=== PATIENT | male | born 1955 | race Caucasian/White ===

== ENCOUNTER 2022-08-23 11:22 | Emergency (ER) | payer OTHER, SELFPAY ==
[2022-08-23 11:24] VITALS: BP 171/88; PULSE 57; RESP 16; TEMP 35.7; O2SAT 99; BMI 34.4
--- NOTE | 2022-08-23 12:13 | ED.VIS.BACK ---
HPI <KENNETH Ng - Last Filed: 08/23/22 22:18> History of Present Illness Chief Complaint: Back Narrative Narrative: Patient presents to the ER with lower right-sided back pain that started Monday evening. He states this feels muscular in nature and he thinks this has happened in the past but is unsure. The pain is worsened by walking/movement and improved with rest. He has tried extra strength Tylenol and aspirin without relief. Patient denies leg weakness, bowel or bladder incontinence, saddle paresthesia, history of back injury, dysuria, hematuria, and urinary frequency. PFSH <KENNETH Ng - Last Filed: 08/23/22 22:18> [facility] Medical History Diabetes Gout HTN (hypertension) Home Medications cyclobenzaprine 10 mg tablet 10 mg PO BID PRN muscle spasm #10 tabs 08/23/22 [Rx Last Taken Unknown] naproxen 500 mg tablet (Naprosyn) 500 mg PO BID PRN pain #20 tabs 08/23/22 [Rx Last Taken Unknown] Allergy/AdvReac Type Severity Reaction Status Date / Time No Known Allergies Allergy Verified 08/23/22 11:22 Social History Smoking Status: Never smoker ROS <KENNETH Ng - Last Filed: 08/23/22 22:18> ROS ED Constitutional Constitutional ED: Denies chills, fever(s) or sweats Eyes Eyes: Denies blurry vision, change in vision or diplopia ENT ENT ED: Denies nasal congestion, rhinorrhea or sore throat Cardiovascular Cardiovascular: Denies chest pain, palpitations or racing heartbeat Respiratory/Chest Respiratory/Chest: Denies dyspnea, dyspnea on exertion, shortness of breath at rest or shortness of breath with exertion Gastrointestinal Gastrointestinal: Denies abdominal pain, diarrhea, nausea or vomiting Genitourinary Genitourinary ED: Denies dysuria, hematuria or urinary frequency Musculoskeletal Musculoskeletal: Reports back pain; Denies arthralgias or neck pain Integumentary Denies abscess, Abrasions or rash Neurologic Neurologic: Denies headache(s), paresthesias or weakness Psychiatric Psychiatric: Denies anxiety or depression EXAM <KENNETH Ng - Last Filed: 08/23/22 22:18> Physical Exam Const Vital Signs: 08/23/22 11:24 Temperature 96.3 F L Temperature Source Temporal Pulse Rate 57 L Respiratory Rate 16 Blood Pressure 171/88 H Blood Pressure Mean 115 Pulse Ox 99 Oxygen Delivery Method Room Air Positive obese General Appearance ED: NAD Nutritional Appearance: obese HEENT Reports moist mucous membranes Negative for trauma or tenderness Eyes PERRL and EOMs intact bilaterally Neck no lymphadenopathy and supple Resp normal respiratory effort and clear to auscultation bilaterally Cardio regular rate, regular rhythm and no murmurs GI soft to palpation, non-tender, non-distended and no masses Back/Spine Back/Spine Narrative: Patient has tenderness to palpation in the right flank area. Cervical Spine: cervical ROM normal and Negative for cervical spine tenderness Thoracic Spine / Upper Back: normal to inspection and thoracic ROM normal Lumbar Spine / Lower Back: normal to inspection, lumbar ROM normal and straight leg raise negative bilaterally Sacroiliac Joints: SI joints normal Sacrum: Negative for ecchymosis, swelling or tenderness Extremity normal to inspection General Extremety ED: Negative for edema or tenderness General Extremity: Negative for edema Neuro oriented x3 and no sensory deficits noted Neuro Narrative: Pulses 2+ throughout. Sensorium / Orientation: alert Gait (Neuro): normal gait Motor Exam: strength 5/5 throughout Psych mental status grossly normal Skin no rashes or lesions noted and no wounds <Michael Kraus MD - Last Filed: 08/23/22 14:56> Physical Exam Const Vital Signs: 08/23/22 11:24 Temperature 96.3 F L Temperature Source Temporal Pulse Rate 57 L Respiratory Rate 16 Blood Pressure 171/88 H Blood Pressure Mean 115 Pulse Ox 99 Oxygen Delivery Method Room Air MDM <KENNETH Ng - Last Filed: 08/23/22 22:18> [facility] Narrative Medical decision making narrative: Lumbar spine x-ray shows degenerative changes of the spine. Right 1 anterolisthesis of L4 on L5 most likely secondary to facet joint osteoarthritis. These findings have been discussed with patient. He has been told to follow-up with his PCP for further treatment. He has been sent home with naproxen and a muscle relaxer. Patient has been given return instructions. He has been educated to avoid heavy lifting or exertional activities and use ice on the area for 10 to 15 minutes 3-4 times a day for the next few days. I am comfortable with patient discharging home and patient is comfortable with plan. Lab Data Attestation: I reviewed the patient's lab results. Lab results narrative: No hematuria, no acute cystitis. Labs: Laboratory Results - last 24 hr 08/23/22 12:51 Urine Color Yellow Urine Clarity Clear Urine pH 6.0 Ur Specific [place] 1.015 Urine Protein 30 H Urine Glucose (UA) Normal Urine Ketones Negative Urine Occult Blood Negative Urine Nitrite Negative Urine Bilirubin Negative Urine Urobilinogen Normal Ur Leukocyte Esterase 25 H Urine RBC 0 SEEN Urine WBC 0-5 SEEN Ur Squamous Epith Cells 0 SEEN Urine Bacteria 0 SEEN Hyaline Casts 0-5 SEEN Fine Granular Casts 0-5 SEEN Urine Mucus 1+ Radiography Diagnostic Testing: Clinical Impression(s) from Imaging Studies Lumbar Spine X-Ray 08/23/22 12:53 IMPRESSION: Degenerative changes of the spine, as detailed above. Right 1 anterolisthesis of L4 on L5 most likely secondary to facet joint osteoarthritis. Electronically Signed: Marky Morales MD at 13:27 EST Reading Location ID and State: [facility] , Service support , I have reviewed lumbar spine x-ray and I agree with radiologist impressions. This has also been reviewed by attending ED physician. <Michael Kraus MD - Last Filed: 08/23/22 14:56> [facility] Narrative Medical decision making narrative: X-rays interpreted by ED physician of the lumbar spine x-ray shows degenerative changes of the spine. Right 1 anterolisthesis of L4 on L5 most likely secondary to facet joint osteoarthritis. These findings have been discussed with patient. He has been told to follow-up with his PCP for further treatment. He has been sent home with naproxen and a muscle relaxer. Patient has been given return instructions. He has been educated to avoid heavy lifting or exertional activities and use ice on the area for 10 to 15 minutes 3-4 times a day for the next few days. I am comfortable with patient discharging home and patient is comfortable with plan. I have personally performed a face to face assessment of the patient and have reviewed the KAYLA Note. I performed a substantive portion of the visit including all aspects of the following. My ibrahim findings include: History is right paraspinal/flank pain times days. No known injury. Exam is afebrile. Vital signs noted. Mild tenderness to palpation right flank/paraspinal musculature. No vertebral point tenderness or bony step-off. No crepitance. Medical Decision Making check UA. Check back x-rays. X-rays interpreted by myself show degenerative changes. Analgesia/muscle relaxers. Follow-up primary care. Discharge. Other additions or changes: [None] Lab Data Labs: Laboratory Results - last 24 hr 08/23/22 12:51 Urine Color Yellow Urine Clarity Clear Urine pH 6.0 Ur Specific [place] 1.015 Urine Protein 30 H Urine Glucose (UA) Normal Urine Ketones Negative Urine Occult Blood Negative Urine Nitrite Negative Urine Bilirubin Negative Urine Urobilinogen Normal Ur Leukocyte Esterase 25 H Urine RBC 0 SEEN Urine WBC 0-5 SEEN Ur Squamous Epith Cells 0 SEEN Urine Bacteria 0 SEEN Hyaline Casts 0-5 SEEN Fine Granular Casts 0-5 SEEN Urine Mucus 1+ Radiography Diagnostic Testing: Clinical Impression(s) from Imaging Studies Lumbar Spine X-Ray 08/23/22 12:53 IMPRESSION: Degenerative changes of the spine, as detailed above. Right 1 anterolisthesis of L4 on L5 most likely secondary to facet joint osteoarthritis. Electronically Signed: Marky Morales MD at 13:27 EST Reading Location ID and State: [address] [place] [address] , Service support , Discharge Plan Triage Chief Complaint: Back ED Midlevel Provider: Linnea Pugh ED Provider: Michael Kraus Dx/Rx/DC Orders Clinical Impression: Back pain, Anterolisthesis of lumbar spine Instructions: ED Back Pain (Acute or Chronic) Prescriptions: New naproxen [Naprosyn] 500 mg tablet 500 mg PO BID PRN (Reason: pain) Qty: 20 0RF cyclobenzaprine 10 mg tablet 10 mg PO BID PRN (Reason: muscle spasm) Qty: 10 0RF [facility] - 5-7 Days Activity Restrictions/Additional Instructions: You can use ice for 10 to 15 minutes 3-4 times a day for the next few days. Please follow-up with PCP for additional treatment options. Disposition Disposition: Home, Self Care Discharge Date/Time: 08/23/22 13:59
--- NOTE | 2022-08-23 12:53 | RAD_ITS ---
STUDY: X-RAY - LUMBAR SPINE REASON FOR EXAM: Male, 67 years old. Right hip pain and lower back pain. TECHNIQUE: 3 view(s) of the lumbar spine were obtained. COMPARISON: None FINDINGS: Normal lumbar lordosis. There is a mild dextroscoliosis of the lumbar spine. Grade 1 anterolisthesis of L4 on L5 most likely secondary to facet joint osteoarthritis. Normal vertebral bodies and endplates. There is multi-level degenerative disc disease with multi-level disc space narrowing. Facet joint osteoarthritis. There is atherosclerotic calcification of the abdominal aorta without a demonstrated aneurysm. RAD/L/S Spine Min 4 Views IMPRESSION: Degenerative changes of the spine, as detailed above. Right 1 anterolisthesis of L4 on L5 most likely secondary to facet joint osteoarthritis. Electronically Signed: Marky Morales MD at 13:27 EST ,
[2022-08-23 12:55] LABS: Bacteria 0 SEEN /hpf (None Seen); Red Blood Cells-Urine 0 SEEN /hpf (0-5); Squamous Epithelial Cells - UA 0 SEEN /hpf (0-5)
[2022-08-23 13:19] LABS: Color, Urine Yellow (Yellow); Glucose, Dipstick Normal (Normal); Ketone-Dipstick Negative (Negative); Leukocyte Esterase-Dipstick 25 /ul (Negative); Nitrite-Dipstick Negative (Negative); Occult Blood-Urine Negative /ul (Negative); Protein-Dipstick 30 mg/dl (Negative); Specific Gravity, Urine 1.015 (1.002-1.030); Urine Bilirubin Dipstick Negative (Negative); Urine Clarity Clear (Clear); Urine Urobilinogen Normal (Normal)
[2022-08-23 13:43] LABS: Hyaline Cast 0-5 SEEN /lpf (0-5); White Blood Cells 0-5 SEEN /hpf (0-5)
[2022-08-23 13:44] LABS: Fine Granular Cast- Urine 0-5 SEEN /lpf (0-5); Mucous, Urine 1+ /hpf (<or=2+)
== END 2022-08-23 13:59 | disposition home or self-care (01) ==
PROVIDERS: Physician Assistant; Emergency Provider Emergency Medicine; Visit Provider Emergency Medicine
DX: M43.16 Spondylolisthesis, lumbar region (principal); E11.9 Type 2 diabetes mellitus without complications; M54.9 Dorsalgia, unspecified; I10 Essential (primary) hypertension
CPT/HCPCS: 72110; 81001; 99282

== ENCOUNTER 2022-12-09 23:10 | Observation (INO) | payer OTHER, SELFPAY ==
[2022-12-09 23:10] VITALS: BP 154/92; PULSE 58; RESP 18; TEMP 36.2; O2SAT 100; BMI 32.8
--- NOTE | 2022-12-09 23:33 | EDS_ITS ---
HPI History of Present Illness HPI Narrative: Patient presents with pain in his left hip that has been getting worse over the past week. Patient states it became severe yesterday. Patient states his pain is worse with any weightbearing or ambulation. Patient states it is better in certain positions. Patient denies any paresthesias or weakness. Patient denies any trauma or injury. Patient describes his pain as sharp. Patient states he has had 2 x-rays of his hip and low back recently. Patient states he was diagnosed with degenerative disc disease in his low back and degenerative arthritis of his hips. Patient states there was no fracture with either of the x-rays. Patient states he was seen at [facility] recently and was started on prednisone, Neurontin, Flexeril, and lidocaine patches. Patient states he has been taking these with no improvement. Chief Complaint: Lower Extremity Injury Informant: patient Onset/Context/Timing Onset: Weeks (1) Context: Gradual Onset Timing: Continuous Quality of Pain: Sharp Location: Left hip Worsened by: Ambulation Relieved by: Certain positions Associated Symptoms Associated Symptoms: Negative for Parasthesia, Weakness or Loss of Funtion PFSH [facility] Medical History DDD (degenerative disc disease) Diabetes Gout HTN (hypertension) Home Medications cyclobenzaprine 10 mg tablet 10 mg PO BID PRN muscle spasm #10 tabs 08/23/22 [Rx Last Taken Unknown] naproxen 500 mg tablet (Naprosyn) 500 mg PO BID PRN pain #20 tabs 08/23/22 [Rx Last Taken Unknown] Allergy/AdvReac Type Severity Reaction Status Date / Time No Known Allergies Allergy Verified 12/09/22 23:14 Surgical History no surgical history no surgical history Social History Smoking Status: Never smoker ROS ROS ED Constitutional Constitutional ED: Denies chills or fever(s) Eyes Eyes: Denies blurry vision or change in vision ENT ENT ED: Denies rhinorrhea or sore throat Cardiovascular Cardiovascular: Denies chest pain or palpitations Respiratory/Chest Respiratory/Chest: Denies cough or dyspnea Gastrointestinal Gastrointestinal: Denies nausea or vomiting Genitourinary Genitourinary ED: Denies dysuria or hematuria Musculoskeletal Musculoskeletal: Denies back pain or neck pain Integumentary Denies abscess or rash Neurologic Neurologic: Denies headache(s) or weakness Allergic/Immunologic Allergic/Immunologic ED: Denies mouth swelling or urticaria EXAM Physical Exam Const Vital Signs: 12/09/22 23:10 12/10/22 03:16 Temperature 97.1 F L Temperature Source Temporal Pulse Rate 58 L 47 L Respiratory Rate 18 16 Blood Pressure 154/92 H 150/78 H Blood Pressure Mean 112 102 Pulse Ox 100 96 Oxygen Delivery Method Room Air Room Air Positive well nourished, well developed and obese General Appearance ED: well developed and NAD Nutritional Appearance: obese HEENT Reports moist mucous membranes Neck full ROM Extremity Extremity Narrative: There is tenderness over the left hip. There is no deformity noted. Range of motion was slightly limited in all motions of the left hip secondary to pain. Pedal pulses are equal bilaterally. Sensation was intact to light touch bilaterally in the lower extremities. Neuro oriented x3, CN's II-XII intact bilaterally, moves all extremities and no sensory deficits noted Sensorium / Orientation: alert Motor Exam: strength 5/5 throughout Psych mental status grossly normal MDM MDM MDM Narrative Medical decision making narrative: Differential diagnosis includes muscular strain, degenerative arthritis, muscle spasm, and neuropathic pain. I do not feel x-rays are necessary at this time since he has had 2 recent x-rays which did not show any acute fractures. Radiography Diagnostic Testing: Clinical Impression(s) from Imaging Studies Lower Extremity CT 12/10/22 03:06 IMPRESSION: No CT evidence of fracture, dislocation, or significant soft tissue abnormality. Electronically Signed: Florida Walters MD at 4:16 EDT Reading Location ID and State: [address] [place] [address] , Service support , CT scan of the left hip was obtained. There is no evidence of occult fracture or dislocation. This was interpreted by the radiologist and was also independently reviewed by myself. Management Discussion w/another healthcare provider: Hospitalist Treatment and Re-Evaluation Narrative: Patient was given injection of morphine. Patient had no improvement with this. Patient was given a repeat dose of morphine. Patient was still unable to bear weight or ambulate. Because of this, CT scan of the left hip was obtained. There is no evidence of occult fracture. This was interpreted by the radiologist and was also independently reviewed by myself. Patient was given a dose of Dilaudid. Patient was still unable to ambulate. Case was discussed with the hospitalist. She will admit the patient for intractable pain. Patient understood and was agreeable with the plan. All questions were answered. Discharge Plan Triage Chief Complaint: Lower Extremity Injury ED Provider: Monico Isaac Dx/Rx/DC Orders Clinical Impression: Intractable pain, Degenerative arthritis of hip Prescriptions: No Action naproxen [Naprosyn] 500 mg tablet 500 mg PO BID PRN (Reason: pain) Qty: 20 0RF cyclobenzaprine 10 mg tablet 10 mg PO BID PRN (Reason: muscle spasm) Qty: 10 0RF [facility] - Disposition Disposition: Acute Care Hospital [facility]
[2022-12-10] VITALS (11 sets, daily range): BP systolic 124–197; BP diastolic 74–108; PULSE 47–70; RESP 16–24; TEMP 36.1–36.9; O2SAT 95–98; BMI 32.5
[2022-12-10] MEDS: Morphine 4 MG/ML Syringe IM ×2 (00:02→01:31)
--- NOTE | 2022-12-10 03:06 | CT_ITS ---
CT LEFT LOWER EXTREMITY WITH 3-D IMAGING CLINICAL INDICATION: Patient has left-sided hip pain. COMPARISON: TECHNIQUE: Axial CT images of the LEFT lower extremity was performed without IV contrast material. Coronal and sagittal reformats were provided. 547 mGy-cm. FINDINGS: Bones: Osseous structures are normal without evidence of fracture or dislocation. No lytic or blastic osseous masses. Soft Tissues: The deep soft tissue structures are unremarkable. The superficial soft tissues are unremarkable without evidence of edema, hematoma, or foreign body. CT/Extremity Lower without Contra IMPRESSION: No CT evidence of fracture, dislocation, or significant soft tissue abnormality. Electronically Signed: Florida Walters MD at 4:16 EDT ,
[2022-12-10] MEDS: HYDROmorphone 0.5 MG/0.5 ML SYRINGE IM (03:18)
--- NOTE | 2022-12-10 05:17 | HP.PCM_ITS ---
HPI - General General Date of Admission: 12/10/22 Date of Service: 12/10/22 Chief Complaint: Intractable L hip, lumbar back pain. HPI Narrative The patient is a 67 y/o M w/ PMHx: Obesity, Gout, HTN, Diabetes mellitus type II, OA who presents to the [facility] ED on 12/10/22 with history of onset intractable left hip pain starting on [facility] and some kind of injection possibly steroids with transient improvement with ability over the next 24-48 hrs. ability to ambulate and be active but he acutely worsened on Monday with tentative 10 severe pain with any ambulation or activity attempt with pain 10 out of 10 at that point however if he laid flat on the left side pain 1 out of 10 with no specific shooting pain down the extremity or paresthesias however given ongoing prompted ED evaluation. He does report that he has had a similar presentation prior although this is more severe and at that time it was in the right hip 3 months ago and resolved with conservative interventions. In the ED following several pain medications he was able with much difficulty to stand and use the urinal with assistance but this was still painful and very difficult. Work-up in the ED included T97.1, heart rate 65, BP 189/98, respiratory rate 18, 98% on room air, CT of the left hip with no evidence of fracture, dislocation, or significant soft tissue abnormality. In the ED patient administered morphine 4 mg IM x2 and Dilaudid 0.5 mg IM x1. [facility] Medical History (Updated 12/10/22 @ 06:[address] Keeley Gutiérrez MD) DDD (degenerative disc disease) Diabetes Gout HTN (hypertension) Obesity (BMI 30.0-34.9) Home Medications cyclobenzaprine 10 mg tablet 10 mg PO BID PRN muscle spasm #10 tabs 08/23/22 [Rx Last Taken Unknown] naproxen 500 mg tablet (Naprosyn) 500 mg PO BID PRN pain #20 tabs 08/23/22 [Rx Last Taken Unknown] Allergy/AdvReac Type Severity Reaction Status Date / Time No Known Allergies Allergy Verified 12/09/22 23:14 Family History (Updated 12/10/22 @ 06:[address] Keeley Gutiérrez MD) Mother Rheumatoid arthritis Father Diabetes Surgical History (Updated 12/10/22 @ 06:[address] Keeley Gutiérrez MD) History of tonsillectomy and adenoidectomy Surgical History no surgical history Social History (Updated 12/10/22 @ 06:[address] Keeley Gutiérrez MD) household members: none Smoking Status: Never smoker alcohol intake: current alcohol intake frequency: holidays/special occasions only substance use type: does not use ROS ROS Narrative Admission Review of Systems: CONSTITUTIONAL: No weight loss, fever, chills, + weakness or fatigue. HEENT: Eyes: No visual loss, blurred vision, double vision or yellow sclerae. Ears, Nose, Throat: No hearing loss, sneezing, congestion, runny nose or sore throat. SKIN: No rash or itching, lesions, wounds. CARDIOVASCULAR: No chest pain, chest pressure or chest discomfort, palpitations, edema, orthopnea, syncopal events. RESPIRATORY: No shortness of breath, cough or sputum, wheezing, hemoptysis. GASTROINTESTINAL: No anorexia, nausea, vomiting or diarrhea, abdominal pain, melena, BRBPR. GENITOURINARY: No dysuria, frequency, urgency or retention. NEUROLOGICAL: No headache, dizziness, syncope, paralysis, ataxia, numbness or tingling in the extremities, focal weakness, change in bowel or bladder control, seizure. MUSCULOSKELETAL: + muscle, back pain, joint pain or stiffness. HEMATOLOGIC: No anemia, bleeding or bruising. LYMPHATICS: No enlarged nodes. No history of splenectomy. PSYCHIATRIC: No history of depression or anxiety. ENDOCRINOLOGIC: No reports of sweating, cold or heat intolerance. No polyuria or polydipsia. ALLERGIES: No history of asthma, hives, eczema or rhinitis. Vital Signs Vital Signs Vital Signs: 12/09/22 23:10 12/10/22 03:16 Temperature 97.1 F L Temperature Source Temporal Pulse Rate 58 L 47 L Respiratory Rate 18 16 Blood Pressure 154/92 H 150/78 H Blood Pressure Mean 112 102 Pulse Ox 100 96 Oxygen Delivery Method Room Air Room Air Weight Weight: 222 lb 3.615 oz Body Mass Index (BMI) 32.8 Physical Exam Narrative Physical Examination: General: Awake, alert, oriented x 3 and cooperative, laying in the ED bed on his left side, currently rates pain 1 out of 10 but notes that if he moves in the bed or attempts to stand it is more severe. Skin: Normal color, normal turgor, no icterus, no cyanosis. HEENT: AT/NC, EOMI, PERRLA, MMM, no carotid bruits or JVD noted. Lungs: CTA bilaterally, moderate effort, mild decrease BL bases, no rales, ronchi or wheezing. Heart: Regular rate and rhythm; no gallop, rub audible. Abdomen: Soft, obese, NTTP, ND, mildly hyperactive BS, no HSM. Extremities: No cyanosis, clubbing, or edema, peripheral pulses intact, pain with rotation or movement of the right hip. Neurological: Patient awake, alert, oriented as noted, cognitive function intact; pupils equally reactive to light and accommodation, cranial nerves II- XII grossly normal, moving all 4 extremities except significantly limited left hip given pain elicited, strength accordingly severely globally decreased. Psychiatric: Affect appears normal, more uncomfortable with attempted activity in the bed, no acute evidence of depressive or anxiety feelings. Results Radiology Impression Lower Extremity CT 12/10/22 03:06 IMPRESSION: No CT evidence of fracture, dislocation, or significant soft tissue abnormality. Electronically Signed: Florida Walters MD at 4:16 EDT Reading Location ID and State: [address] [place] [address] , Service support , Assessment & Plan Assessment/Plan (1) Intractable pain: PLAN: Plan The patient is a 67 y/o M w/ PMHx: Obesity, Gout, HTN, Diabetes mellitus type II, OA who presents to the [facility] ED on 12/10/22 with history of onset intractable left hip pain starting on Monday [facility] and some kind of injection possibly steroids with transient improvement with ability over the next 24-48 hrs. ability to ambulate and be active but he acutely worsened on Monday with tentative 10 severe pain with any ambulation or activity attempt with pain 10 out of 10 at that point however if he laid flat on the left side pain 1 out of 10. #1. Acute Intractable L hip Pain: CT of the left hip with no acute findings and [facility] the [facility] also with no acute findings, unclear specific etiology. Will admit to [facility], maintain on fall precautions, frequent positioning, initiate IV toradol, lidoacine patches, tizanidine, medrol dose pack, po/IV narcotic pain regimen, anti-emetics, bowel regimen. Will consult PT and OT for evaluation as well as Case management for discharge planning. Given severity of pain and intractable nature to be cautious we will also obtain CRP and ESR and request evaluation by orthopedic surgery. #2. Diabetes mellitus type II: From current list not on regimen but clarifying with the [facility], in the interim we will maintain on ADA diet, accu checks w/ ISS. #3. Hypertension: Per current list not on regimen, clarifying with the [facility], in the interim as needed IV hydralazine. #4. Obesity: Weight loss and lifestyle changes encouraged. #5. Gout: From current list not on chronic regimen, clarifying with the [facility]. #6. DVT prophylaxis: Lovenox. #7. CODE STATUS: Full Code. Admission Evaluation Time spent evaluating chart, patient history, patient evaluation, care planning and discussion with specialists: 55 minutes. Charges/Coding Visit Charges Inpatient E&M: 79869 Init Hosp L2
--- NOTE | 2022-12-10 05:46 | NURSING ---
CALLED [facility] FOR AUTHORIZATION NUMBER - REFERRAL ID # [id number] [place] AUTHORIZATION #[id number]
[2022-12-10 06:55] LABS: Erythrocyte Sedimentation Rate 10 mm/hr (0-20)
[2022-12-10] MEDS: HYDROmorphone 0.5 MG/0.5 ML SYRINGE IV ×2 (07:06→10:42)
[2022-12-10 07:14] LABS: CRP 3.61 mg/L (0.0-3.0)
[2022-12-10] MEDS: 0.9% Normal Saline 1,000 ML 100 ML IV (07:30)
[2022-12-10] MEDS: 0.9% Saline Lock 10 ML Syringe IV ×2 (07:30→08:24)
--- NOTE | 2022-12-10 08:22 | EKG12_ITS ---
Test Reason : Blood Pressure : / mmHG Vent. Rate : 056 BPM Atrial Rate : 056 BPM P-R Int : 170 ms QRS Dur : 104 ms QT Int : 464 ms P-R-T Axes : 013 003 050 degrees QTc Int : 447 ms Sinus bradycardia with occasional Premature ventricular complexes Otherwise normal ECG When compared with ECG of 10-DEC-2022 08:35, MANUAL COMPARISON REQUIRED, DATA IS UNCONFIRMED Confirmed by KINGSLEY BERGERON, JOAQUÍN ([id number]), avid editor JAMIE DILL ([id number]) on 12/13/2022 9:07:20 AM Referred By: JUSTINO Confirmed By:JOAQUÍN WYNN MD
--- NOTE | 2022-12-10 08:23 | NURSING ---
Dr Carver here to assess pt, said to transfer and also to give hydralzine.
[2022-12-10] MEDS: hydrALAZINE 20 MG/ML Vial 10 MG IV (08:24)
--- NOTE | 2022-12-10 08:35 | EKG12_ITS ---
Test Reason : DIAPHORESIS Blood Pressure : / mmHG Vent. Rate : 062 BPM Atrial Rate : 062 BPM P-R Int : 178 ms QRS Dur : 094 ms QT Int : 446 ms P-R-T Axes : 091 -47 051 degrees QTc Int : 452 ms Sinus rhythm with occasional Premature ventricular complexes Left axis deviation Septal infarct , age undetermined Abnormal ECG No previous ECGs available Confirmed by KINGSLEY BERGERON, JOAQUÍN ([id number]), editor trade journal JAMIE DILL ([id number]) on 12/13/2022 9:13:02 AM Referred By: TACHO Confirmed By:JOAQUÍN WYNN MD
--- NOTE | 2022-12-10 09:04 | ECHOCS_ITS ---
Reason For Study: BRADYCARDIA Procedure This was a 2D Doppler, Color Flow transthoracic echocardiogram. The study was technically difficult. Contrast injection was performed. Exam performed portable in patient room. Left Ventricle Mildly dilated left ventricle. The estimated ejection fraction is 45-50 %. LimitedTTE with TDS Contrast echo used Overall EF 45-50%. Right Ventricle Normal right ventricle. Normal systolic function. Atria The left atrium is mildly enlarged. Normal right atrium. Mitral Valve The mitral valve is structurally normal. No prolapse or stenosis seen. No mitral valve insufficiency. Tricuspid Valve Normal tricuspid valve. No tricuspid valve insufficiency. Aortic Valve Normal aortic valve. Pulmonic Valve The pulmonic valve is not well visualized. Great Vessels Normal aortic root. Pericardium/Pleural No pericardial effusion. Medication Diluted definity 3ml given slow IV push to enhance endocardial definition. MMode/2D Measurements & Calculations Ao root diam: 3.3 cm SV(MOD-sp4): 72.2 ml LVAd ap4: 43.3 cm2 LVLd ap4: 9.9 cm EDV(MOD-sp4): 156.7 ml EDV(sp4-el): 161.6 ml LVAs ap4: 30.4 cm2 LVLs ap4: 8.8 cm ESV(MOD-sp4): 84.5 ml ESV(sp4-el): 88.9 ml EF(MOD-sp4): 46.1 % EF(sp4-el): 45.0 % SV(sp4-el): 72.7 ml LA dimension(2D): 4.8 cm Time Measurements MV dec time: 0.28 sec Doppler Measurements & Calculations MV E max monty: 64.1 cm/sec Lat Peak E' Monty: 6.8 cm/sec Med Peak E' Monty: 6.4 cm/sec MV A max monty: 63.0 cm/sec E/E' lat: 9.4 E/E' med: 10.0 MV E/A: 1.0 MV V2 max: 74.4 cm/sec Ao V2 max: 82.0 cm/sec MV max P.2 mmHg MV dec slope: 232.4 cm/sec2 Ao max P.7 mmHg MV V2 mean: 43.3 cm/sec Ao V2 mean: 54.7 cm/sec MV mean P.86 mmHg Ao mean P.4 mmHg MV V2 VTI: 22.3 cm Ao V2 VTI: 20.4 cm AV (velocity ratio): 0.84 LV V1 max: 72.4 cm/sec PA V2 max: 74.9 cm/sec TR max monty: 297.5 cm/sec LV V1 max P.1 mmHg PA V2 mean: 61.8 cm/sec TR max P.4 mmHg LV V1 mean P.1 mmHg LV V1 mean: 50.4 cm/sec LV V1 VTI: 17.2 cm ECHO/Echo Complete W/ Contrast Interpretation Summary The estimated ejection fraction is 45-50 %. LimitedTTE with TDS Contrast echo used No prior echo to compare Ordering Physician: Gabbi Duarte Referring Physician: [facility] Performed By: Lou Elkins RCS
[2022-12-10 09:16] LABS: Bedside Glucose 144 mg/dL (74-106)
[2022-12-10] MEDS: Gabapentin 100 MG Capsule PO ×3 (09:29→16:45)
[2022-12-10] MEDS: oxyCODONE 5 MG Tablet PO ×3 (09:29→18:30)
[2022-12-10] MEDS: Acetaminophen 325 MG Tablet 650 MG PO ×3 (09:29→18:30)
--- NOTE | 2022-12-10 09:31 | NURSING ---
0838 report to Lydia Mary RN
--- NOTE | 2022-12-10 09:32 | NURSING ---
0852 Lydia Mary Rn notified pt is in 107.
[2022-12-10 09:48] LABS: Troponin-I HS 17 pg/mL (3.0-78.0)
[2022-12-10] MEDS: tiZANidine HCl 2 MG Tablet 4 MG PO (10:41)
[2022-12-10] MEDS: MethylPREDNISolone DosePak 4 MG BOX PO ×4 (10:41→21:20)
[2022-12-10] MEDS: Lidocaine 5% Patch 1 PATCH TOPICAL (10:42)
[2022-12-10] MEDS: Enoxaparin 40 MG/0.4 ML Syringe SC (10:42)
[2022-12-10] MEDS: Insulin Lispro 100 UNIT/ML INSULN.PEN SC ×3 (11:08→21:25)
[2022-12-10 11:40] LABS: Bedside Glucose 184 mg/dL (74-106)
[2022-12-10] MEDS: Lisinopril 10 MG Tablet PO (11:59)
[2022-12-10] MEDS: metFORMIN HCl 1,000 MG Tablet 1000 MG PO (12:55)
[2022-12-10] MEDS: hydroCHLOROthiazide 12.5mg 12.5 MG PO (12:55)
--- NOTE | 2022-12-10 13:55 | CASEMGMT ---
SHAI BOWIE DC Planning Assessment: Face to Face with patient for initial transition planning/care coordination assessment.?SHAI BOWIE introduced self and role at [facility], pt voices understanding and is agreeable to participating in assessment. Care providers, pharmacy,?and demographics verified. ? Admitting dx: intractable left hip pain PCP: Raúl Specialists: Darnell (rheumatology) [facility]? Living Will/HPOA: none LNOK: brother Salas Living Arrangements: Pt lives alone in a two story home. Pt's bedroom and 1/2 bath on first floor and tub is on the second floor. Pt does not have a shower. Pt states he does not cook and eats out for all of his meals. 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 Transportation: pt drives DME: none HHC/SNF: none ? Plan: Pt plans to return home at discharge with outpt therapy. Pt states he was to have outpt tx after his last flare up but states he did not attend. Pt has followed up with his PCP and an outpt tx appointment has been scheduled for him on December 26 at the [facility]. Pt states he plans to attend this appointment. Pt has not been seen by PT/OT as of this date and time. Pt remains painful but states it is decreasing. Will continue to follow for additional DC needs as they are identified. Suzette Dunne RN CM
--- NOTE | 2022-12-10 14:27 | PCM.CONS.B ---
Consult Date of Consult: 12/10/22 Mr. Perez is a most pleasant gentleman 67 years old and has a chief complaint of pain in his left buttocks. First began about a month ago with pain in the right buttocks did go down his right thigh or leg. Got better with some treatments by his family doctor Monday it began in the left side with even more pain than it had been on the right a month earlier. Pain became unbearable yesterday admitted through the emergency department treatment. Currently a CT scan was done of the left hip which was unremarkable. That the pain he thinks might go a little bit into his left thigh but it certainly does not go below the knee. He denies any bowel or bladder dysfunction. He denies history of explained weight loss night fever sweats or chills. He denies any specific injury that could have started this. On examination it is noted that he has excellent motor strength of all the major muscle groups of both lower extremities. He has no specific muscle atrophy. He has no pain with internal or external rotation or abduction of the left hip. Reflexes were physiologic and equal bilaterally. He has no long tract signs. Clonus is absent Babinski's are downgoing. Review of plain x-rays taken of his back I demonstrate that he has a degenerative spondylolisthesis of L4 and L5. I suspect he has some degree of stenosis at this level. Recommendations: MRI scan is in order. I will order the MRI scan today however I do not know if it will be done until Monday. I be home by then and if so can be done as an outpatient. This is the end of consultation on Mr. Jarrod Perez. This is Dr. Guzmán dictating.
--- NOTE | 2022-12-10 15:10 | PN_ITS ---
Subjective Subjective Patient seen and examined. He was admitted with a complaint of intractable left hip pain. He still complained of left hip pain. This morning patient was noted to be bradycardic with heart rate going down to the 40s. He denied any chest pain but admitted to increased sweating. He denied any lightheadedness, nausea or vomiting. Review of systems otherwise negative. He does not have any known cardiac history. Objective Data Objective Data Vital Signs: Vital Signs Temp Pulse Resp BP Pulse Ox O2 Del Method 97.0 F L 61 18 124/74 H 97 Room Air 12/10/22 10:35 12/10/22 10:35 12/10/22 10:35 12/10/22 12:01 12/10/22 10:35 12/10/22 14:19 Oxygen Delivery Method Room Air Weight: 227 lb 1.218 oz Body Mass Index (BMI) 32.5 Intake & Output: Intake and Output for Last 24 Hours 12/08/22 12/09/22 12/10/22 23:59 23:59 23:59 Intake Total 240 / 240 Output Total 200 / 200 Balance 40 / 40 Lab / Micro Data Labs: Laboratory Results - last 24 hr 12/10/22 06:35: ESR 10 12/10/22 06:35: C-React Prot Ext Range 3.61 H 12/10/22 07:24: POC Glucose 144 H 12/10/22 08:42: Troponin I High Sens 17 12/10/22 10:58: POC Glucose 184 H Radiography Diagnostic Testing: Radiology Impression Lower Extremity CT 12/10/22 03:06 IMPRESSION: No CT evidence of fracture, dislocation, or significant soft tissue abnormality. Electronically Signed: Florida Walters MD at 4:16 EDT , Echocardiogram 12/10/22 09:04 Interpretation Summary The estimated ejection fraction is 45-50 %. LimitedTTE with TDS Contrast echo used No prior echo to compare Ordering Physician: Gabbi Duarte Referring Physician: [facility] Performed By: Lou Elkins RCS Physical Exam Const alert and oriented x3 Constitutional Narrative: mild distress due to pain HEENT normocephalic, head/scalp atraumatic and moist oral mucous membranes Eyes PERRL and EOMs intact bilaterally Neck supple and no JVD Lymph Lymphatic: no lymphadenopathy noted and no lymphedema noted Resp normal respiratory effort and normal air movement Cardio regular rate, regular rhythm, S1 normal heart sound, S2 normal heart sound and no murmurs Cardio Narrative: bradycardia from this morning had resolved GI normal to inspection, nondistended, normoactive bowel sounds, soft to palpation, non-tender and non-distended Extremity normal capillary refill, no clubbing, cyanosis or edema and no calf tenderness Skin General Skin Exam: no breakdown Neuro CN's II-XII intact bilaterally, no focal motor deficits and no sensory deficits noted Motor Exam: strength 5/5 throughout Psych affect normal Appearance: appropriate Assessment & Plan Assessment/Plan (1) Intractable pain: PLAN: Plan #Intractable left hip pain * etiology is unclear * LLE CT showed no evidence of fracture, dislocation or significant soft tissue * xray of the lumbar spine showed degenerative disease of the spine and right 1 anterolisthesis of L4 on L45 most likely due to facet joint osteoarthritis * will order lumbar spine MRI in light of persistent back pain to evaluate for spinal stenosis. * PT/OT consult. * fall precautions * PO tylenol, PO oxycodone and IV hydromorphone prn for pain * * #Bradycardia * patient noted to be bradycardic today with HR going down to the 40s. * Patient was also diaphoretic but asked whether this is from the severe pain or otherwise it is not clear. * EKG done showed sinus rhythm with heart rate around 61. * He was started on tizanidine yesterday which can cause bradycardia so this may be the cause. Will DC tizanidine. * 2D echo showed EF of 45 to 50% with structurally normal valves. Left atrium is mildly enlarged. * If bradycardia does not improve after tizanidine is discontinued, will benefit from cardiology consult. * Will monitor heart rate. * #Hypertension: On lisinopril as well as hydrochlorothiazide.IV hydralazine prn #History of gout: on allopurinol DVT prophylaxis; lovenox Charges/Coding Visit Charges Inpatient E&M: 69115 Subs Hosp L2
[2022-12-10] MEDS: Allopurinol 100 MG Tablet 200 MG PO (16:48)
[2022-12-10 16:51] LABS: Magnesium 1.8 mg/dL (1.6-2.6)
[2022-12-10 17:06] LABS: Bedside Glucose 227 mg/dL (74-106)
[2022-12-11 00:45] LABS: Bedside Glucose 212 mg/dL (74-106)
[2022-12-11 03:09] VITALS: BP 141/72; PULSE 50; RESP 17; TEMP 36.4; O2SAT 94
[2022-12-11 04:42] VITALS: BMI 32.5
[2022-12-11] MEDS: Insulin Lispro 100 UNIT/ML INSULN.PEN SC ×4 (06:17→21:39)
[2022-12-11 06:37] LABS: Absolute Lymphocyte Count 1.46 X10^3/uL (0.83-4.51); Absolute Neutrophil Count 13.4 X10^3/uL (2.0-7.7); Basophil# 0.02 X10^3/uL; Basophil% 0.1 % (0-1); Hematocrit 42.4 % (40-54); Hemoglobin 14.7 g/dL (13.0-16.5); Lymphocyte # 1.46 X10^3/ul (0.83-4.51); Lymphocyte % 9.2 % (19-41); Mean Corp Hgb Conc 34.7 g/dL (32-36); Mean Corpuscular Hgb 32.3 pg (27.0-32.0); Mean Corpuscular Volume 93.2 fL (80-94); Mean Platelet Vol. 9.7 fl (6.2-12.0); Monocyte# 0.78 X10^3/uL; Monocyte% 4.9 % (0-10); NRBC Flagged by Analyzer 0 % (0-5); Neutrophil # 13.39 X10^3/uL (2.7-7.7); Neutrophil % 84.9 % (47-70); Platelet Count 393 K/mm3 (150-450); RBC Distribution Width CV 13.2 % (11.6-14.6); RBC Distribution Width SD 45.2 fl (35.1-43.9); Red Blood Count 4.55 M/mm3 (4.6-6.2); White Blood Count 15.8 K/mm3 (4.4-11.0)
[2022-12-11 06:40] LABS: Bedside Glucose 205 mg/dL (74-106)
[2022-12-11 07:05] LABS: ALB/GLOB Ratio 0.9 RATIO (0.9-2.4); AST(SGOT) 23 U/L (15-37); Alanine Aminotransfer ALT/SGPT 47 U/L (16-61); Albumin, Serum 3.2 g/dL (3.2-5.0); Alkaline Phosphatase 64 U/L (45-117); Anion Gap 6 (5-15); BUN 29 mg/dL (7-18); BUN/Creat Ratio 26.9 RATIO (10-20); Calcium,Total 9.1 mg/dL (8.5-10.1); Chloride 102 mmol/L (98-107); Creatinine, Serum 1.08 mg/dL (0.70-1.30); EST Glomerular Filtration Rate 73 mL/min (>60); Est Glom Filt Rate - Afr Amer 88 mL/min (>60); Estimated Creatinine Clearance 70.41 ml/min; Globulin 3.6 g/dL (2.2-4.2); Glucose 208 mg/dL (74-106); Potassium 4.3 mmol/L (3.5-5.1); Protein, Total 6.8 g/dL (6.4-8.2); Sodium Level 134 mmol/L (136-145)
[2022-12-11] MEDS: Gabapentin 100 MG Capsule PO ×3 (07:57→16:26)
[2022-12-11] MEDS: MethylPREDNISolone DosePak 4 MG BOX PO ×4 (07:58→21:34)
[2022-12-11] MEDS: Allopurinol 100 MG Tablet 300 MG PO (07:58)
[2022-12-11] MEDS: oxyCODONE 5 MG Tablet PO ×3 (08:01→21:36)
[2022-12-11] MEDS: Acetaminophen 325 MG Tablet 650 MG PO ×3 (08:02→21:36)
[2022-12-11 08:47] VITALS: BP 161/94; PULSE 78; RESP 18; TEMP 36.7; O2SAT 98
[2022-12-11] MEDS: Lidocaine 5% Patch 1 PATCH TOPICAL (08:50)
[2022-12-11] MEDS: Lisinopril 10 MG Tablet PO (08:50)
[2022-12-11] MEDS: hydroCHLOROthiazide 12.5mg 12.5 MG PO (08:50)
[2022-12-11] MEDS: Enoxaparin 40 MG/0.4 ML Syringe SC (08:50)
--- NOTE | 2022-12-11 10:30 | MRI_ITS ---
STUDY: MR PELVIS WITHOUT CONTRAST REASON FOR EXAM: Male, 67 years old. Severe left hip pain. TECHNIQUE: Standardized fat and water weighted pulse sequences were obtained in all 3 orthogonal planes. COMPARISON: CT of the left hip, December 10, 2022. FINDINGS: Normal urinary bladder. Normal visualized small intestine. Normal visualized colon. Normal-appearing prostate. There is no pelvic fluid. There is no pelvic mass lesion or lymphadenopathy. Normal visualized pelvic arteries. Visualized lumbar spine, sacrum and sacroiliac joints and iliac wings appear normal. Normal bilateral superior and inferior pubic rami and ischial tuberosities. Minimal degenerative changes of the symphysis pubis. Normal right femoral head, neck and proximal shaft. Normal right acetabulum. Normal right hip joint. Normal left femoral head, neck and proximal shaft. Normal left acetabulum. Normal left hip joint. Normal abdominal wall. MRI/Pelvis (Routine) IMPRESSION: Normal unenhanced MRI of the pelvis. Electronically Signed: Brice Alatorre DO at 16:56 EDT ,
--- NOTE | 2022-12-11 10:30 | MRI_ITS ---
STUDY: MRI LUMBAR SPINE WITH AND WITHOUT CONTRAST REASON FOR EXAM: Male, 67 years old. severe left hip pain, BACK PAIN, UNABLE TO AMBULATE TECHNIQUE: Standardized fat and water weighted pulse sequences were obtained in the sagittal and axial planes. IV 20ml clariscan was administered for the contrast portion of the examination. COMPARISON: X-ray 08/23/2022 FINDINGS: T12-L1: Mild bilobed disc protrusion produces mild spinal stenosis but no neural foraminal stenosis. Normal lumbar lordosis. There is no substantial scoliosis. Normal conus medullaris that terminates at the L1. L1-2: Normal endplates. Normal disc height, hydration and morphology. Normal bilateral facet joints. Normal central canal and bilateral lateral recesses. Normal bilateral intervertebral neural foramina. L2-3: Mild bilateral facet hypertrophy with fluid in the facet joints consistent with instability and mild ligament flavum hypertrophy. 2 mm retrolisthesis of L2 on L3 with a mild bilobed disc protrusion and a 1 cm inferiorly extending left paracentral disc extrusion produces mild spinal stenosis and mild bilateral neural foraminal stenosis with severe left lateral recess stenosis with effacement of the left L3 nerve root. L3-4: Mild bilateral facet hypertrophy and ligament flavum hypertrophy. Mild bilobed disc protrusion produces mild spinal stenosis and mild bilateral neural foraminal stenosis. L4-5: Mild bilateral facet hypertrophy and moderate ligament flavum hypertrophy. Moderate broad disc protrusion produces moderate spinal stenosis and moderate bilateral neural foraminal stenosis. L5-S1: Mild bilateral facet hypertrophy. Moderate broad disc protrusion produces moderate spinal stenosis and moderate bilateral neural foraminal stenosis. Normal visualized sacral ala. Normal visualized paraspinous soft tissue structures. There is no demonstrated abnormal enhancement. MRI/Spine Lumbar W/WO Contrast IMPRESSION: Multilevel degenerative changes, as described above. Electronically Signed: Yaya Meyer MD at 14:18 EDT ,
[2022-12-11 13:30] LABS: Bedside Glucose 195 mg/dL (74-106)
--- NOTE | 2022-12-11 13:42 | PN.HOSP_ITS ---
Reason for Visit Reason for Visit: Diagnoses Essential (primary) hypertension (12/10/22) Pain, unspecified (12/10/22) Subjective Subjective Reports his pain had started to improve yesterday but worsened again today, very positional though never completely goes away, still does not feel he can stand up and walk and reports he has no support at home. MRI is pending, did have bradycardia in the 40s again on telemetry early in the morning but since awake and moving around has not been bradycardic Objective Data Objective Data Vital Signs: Vital Signs Temp Pulse Resp BP Pulse Ox O2 Del Method 98.1 F 78 18 161/94 H 98 Room Air 12/11/22 08:47 12/11/22 08:47 12/11/22 08:47 12/11/22 08:47 12/11/22 08:47 12/11/22 08:47 Oxygen Delivery Method Room Air Weight: 102.8 kg Body Mass Index (BMI) 32.5 Intake & Output: Intake and Output for Last 24 Hours 12/09/22 12/10/22 12/11/22 23:59 23:59 23:59 Intake Total 1740 / 1740 500 / 500 Output Total 1350 / 1350 1450 / 1450 Balance 390 / 390 -950 / -950 Lab / Micro Data Result Diagrams: 12/11/22 06:20 12/11/22 06:20 Labs: Laboratory Results - last 24 hr 12/10/22 08:42: Magnesium 1.8 12/10/22 16:42: POC Glucose 227 H 12/10/22 21:24: POC Glucose 212 H 12/11/22 06:16: POC Glucose 205 H 12/11/22 06:20: WBC 15.8 H, RBC 4.55 L, Hgb 14.7, Hct 42.4, MCV 93.2, MCH 32.3 H , MCHC 34.7, RDW Std Deviation 45.2 H, RDW Coeff of Micaela 13.2, Plt Count 393, MPV 9.7, Immature Gran % (Auto) 0.900, Neut % (Auto) 84.9 H, Lymph % (Auto) 9.2 L, [place] % (Auto) 4.9, Eos % (Auto) 0.0, Baso % (Auto) 0.1, Absolute Neuts (auto) 13.4 H, Absolute Lymphs (auto) 1.46, Nucleated RBC % 0 12/11/22 06:20: Sodium 134 L, Potassium 4.3, Chloride 102, Carbon Dioxide 26.0, Anion Gap 6, BUN 29 H, Creatinine 1.08, Estim Creat Clear Calc 70.41, Est GFR (MDRD) Af Amer 88, Est GFR (MDRD) Non-Af 73, BUN/Creatinine Ratio 26.9 H, Glucose 208 H, Calcium 9.1, Total Bilirubin 0.80, AST 23, ALT 47, Alkaline Phosphatase 64, Total Protein 6.8, Albumin 3.2, Globulin 3.6, Albumin/Globulin Ratio 0.9 12/11/22 12:27: POC Glucose 195 H Physical Exam Narrative General: Alert, oriented, no apparent distress HEENT: Atraumatic, normocephalic Eyes: Anicteric, normal conjunctiva, extraocular movements grossly intact Neck: Supple Respiratory: Clear to auscultation bilaterally, normal respiratory effort Cardiovascular: Regular rate and rhythm GI: Soft, nontender, nondistended Extremities: No edema Musculoskeletal: Moving all extremities Neuro: No overt focal neurological deficits Skin: No rashes appreciated Psych: Cooperative Assessment & Plan Assessment/Plan (1) Intractable pain: PLAN: Plan #Intractable left hip pain -etiology is unclear -LLE CT showed no evidence of fracture, dislocation or significant soft tissue -xray of the lumbar spine showed degenerative disease of the spine and right 1 anterolisthesis of L4 on L45 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 -fall precautions -PO tylenol, PO oxycodone and IV hydromorphone prn for pain. Also on Medrol Dosepak and topical lidocaine as well as gabapentin as needed #Bradycardia -Has had some intermittent heart rates in 40s to 50s, most recently very early this a.m. but has been within normal limits since he has been up and moving around -Denies any symptoms at this time -EKG done showed sinus rhythm with heart rate around 61. -2D echo showed EF of 45 to 50% with structurally normal valves.? Left atrium is mildly enlarged. -Continue to monitor on telemetry #Hypertension -On lisinopril as well as hydrochlorothiazide.IV hydralazine prn #History of gout -on allopurinol DVT prophylaxis; lovenox Charges/Coding Visit Charges Inpatient E&M: 63849 Subs Hosp L2
[2022-12-11 16:18] VITALS: BP 170/97; PULSE 69; RESP 18; TEMP 36.1; O2SAT 96
[2022-12-11] MEDS: Allopurinol 100 MG Tablet 200 MG PO (16:23)
[2022-12-11 16:30] VITALS: PULSE 69
[2022-12-11] MEDS: hydrALAZINE 20 MG/ML Vial 10 MG IV (16:30)
[2022-12-11 17:40] VITALS: BP 153/78
[2022-12-11 17:40] LABS: Bedside Glucose 263 mg/dL (74-106)
[2022-12-11 21:41] VITALS: BP 171/102; PULSE 76; RESP 18; TEMP 36.7; O2SAT 95
[2022-12-12 01:01] VITALS: BP 141/92
[2022-12-12 02:05] LABS: Bedside Glucose 249 mg/dL (74-106)
[2022-12-12 03:13] VITALS: BP 153/97; PULSE 67; RESP 15; TEMP 36.6; O2SAT 97
[2022-12-12] MEDS: Acetaminophen 325 MG Tablet 650 MG PO ×3 (03:18→15:30)
[2022-12-12 05:51] LABS: Absolute Lymphocyte Count 1.82 X10^3/uL (0.83-4.51); Absolute Neutrophil Count 14.1 X10^3/uL (2.0-7.7); Basophil# 0.02 X10^3/uL; Basophil% 0.1 % (0-1); Eosinophil# 0.03 X10^3/uL; Eosinophils% 0.2 % (0-5); Hematocrit 46.4 % (40-54); Lymphocyte # 1.82 X10^3/ul (0.83-4.51); Lymphocyte % 10.6 % (19-41); Mean Corp Hgb Conc 34.5 g/dL (32-36); Mean Corpuscular Hgb 31.6 pg (27.0-32.0); Mean Corpuscular Volume 91.7 fL (80-94); Monocyte# 1.06 X10^3/uL; Monocyte% 6.2 % (0-10); NRBC Flagged by Analyzer 0 % (0-5); Neutrophil # 14.07 X10^3/uL (2.7-7.7); Neutrophil % 81.9 % (47-70); Platelet Count 467 K/mm3 (150-450); RBC Distribution Width CV 13.3 % (11.6-14.6); RBC Distribution Width SD 44.9 fl (35.1-43.9); Red Blood Count 5.06 M/mm3 (4.6-6.2); White Blood Count 17.2 K/mm3 (4.4-11.0)
[2022-12-12 06:00] VITALS: BMI 32.3
[2022-12-12] MEDS: Insulin Lispro 100 UNIT/ML INSULN.PEN SC ×4 (06:34→21:38)
[2022-12-12] MEDS: Senna/Docusate Sodium 1 Tablet 2 TABLET PO (06:37)
[2022-12-12 06:38] LABS: Anion Gap 8 (5-15); BUN 33 mg/dL (7-18); Calcium,Total 9.5 mg/dL (8.5-10.1); Chloride 100 mmol/L (98-107); EST Glomerular Filtration Rate 80 mL/min (>60); Est Glom Filt Rate - Afr Amer 96 mL/min (>60); Estimated Creatinine Clearance 76.04 ml/min; Glucose 235 mg/dL (74-106); Potassium 4.2 mmol/L (3.5-5.1); Sodium Level 132 mmol/L (136-145)
[2022-12-12 07:00] LABS: Bedside Glucose 245 mg/dL (74-106)
[2022-12-12] MEDS: Allopurinol 100 MG Tablet 300 MG PO (08:17)
[2022-12-12] MEDS: oxyCODONE 5 MG Tablet PO ×2 (08:18→15:29)
[2022-12-12] MEDS: MethylPREDNISolone DosePak 4 MG BOX PO ×4 (08:19→21:39)
[2022-12-12] MEDS: Gabapentin 100 MG Capsule PO ×3 (08:39→18:03)
[2022-12-12] MEDS: hydroCHLOROthiazide 25 MG Tablet PO (08:40)
[2022-12-12] MEDS: Enoxaparin 40 MG/0.4 ML Syringe SC (08:40)
[2022-12-12] MEDS: Lisinopril 10 MG Tablet PO (08:40)
[2022-12-12 09:15] VITALS: BP 146/102; PULSE 68; RESP 16; TEMP 36.7; O2SAT 95
[2022-12-12 12:25] LABS: Bedside Glucose 223 mg/dL (74-106)
--- NOTE | 2022-12-12 13:20 | PCM.PN.HOSP ---
Reason for Visit Reason for Visit: Diagnoses Essential (primary) hypertension (12/10/22) Pain, unspecified (12/10/22) Subjective Subjective Patient still continues to report pain, to work with PT today Objective Data Objective Data Vital Signs: Vital Signs Temp Pulse Resp BP Pulse Ox O2 Del Method 98.0 F 68 16 146/102 H 95 Room Air 12/12/22 09:15 12/12/22 09:15 12/12/22 09:15 12/12/22 09:15 12/12/22 09:15 12/12/22 09:15 Oxygen Delivery Method Room Air Weight: 102.2 kg Body Mass Index (BMI) 32.3 Intake & Output: Intake and Output for Last 24 Hours 12/10/22 12/11/22 12/12/22 23:59 23:59 23:59 Intake Total 1740 / 1740 1100 / 1100 Output Total 1350 / 1350 2250 / 2250 750 / 750 Balance 390 / 390 -1150 / -1150 -750 / -750 Lab / Micro Data Result Diagrams: 12/12/22 05:05 12/12/22 05:05 Labs: Laboratory Results - last 24 hr 12/11/22 06:20: Hemoglobin A1c 8.0 H 12/11/22 12:27: POC Glucose 195 H 12/11/22 16:21: POC Glucose 263 H 12/11/22 21:39: POC Glucose 249 H 12/12/22 05:05: WBC 17.2 H, RBC 5.06, Hgb 16.0, Hct 46.4, MCV 91.7, MCH 31.6, MCHC 34.5, RDW Std Deviation 44.9 H, RDW Coeff of Micaela 13.3, Plt Count 467 H, MPV 10.0, Immature Gran % (Auto) 1.000 H, Neut % (Auto) 81.9 H, Lymph % (Auto) 10.6 L, [place] % (Auto) 6.2, Eos % (Auto) 0.2, Baso % (Auto) 0.1, Absolute Neuts (auto) 14.1 H, Absolute Lymphs (auto) 1.82, Nucleated RBC % 0 12/12/22 05:05: Sodium 132 L, Potassium 4.2, Chloride 100, Carbon Dioxide 24.0, Anion Gap 8, BUN 33 H, Creatinine 1.00, Estim Creat Clear Calc 76.04, Est GFR (MDRD) Af Amer 96, Est GFR (MDRD) Non-Af 80, BUN/Creatinine Ratio 33.0 H, Glucose 235 H, Calcium 9.5 12/12/22 06:33: POC Glucose 245 H 12/12/22 11:50: POC Glucose 223 H Radiography Diagnostic Testing: Radiology Impression Lumbar Spine MRI 12/11/22 10:30 IMPRESSION: Multilevel degenerative changes, as described above. Electronically Signed: Yaya Meyer MD at 14:18 EDT , Pelvis MRI 12/11/22 10:30 IMPRESSION: Normal unenhanced MRI of the pelvis. Electronically Signed: Brice Alatorre DO at 16:56 EDT , Physical Exam Narrative General: Alert, oriented, no apparent distress HEENT: Atraumatic, normocephalic Eyes: Anicteric, normal conjunctiva, extraocular movements grossly intact Neck: Supple Respiratory: Clear to auscultation bilaterally, normal respiratory effort Cardiovascular: Regular rate and rhythm GI: Soft, nontender, nondistended Extremities: No edema Musculoskeletal: Moving all extremities Neuro: No overt focal neurological deficits Skin: No rashes appreciated Psych: Cooperative Assessment & Plan Assessment/Plan (1) Intractable pain: PLAN: Plan 3/#Intractable left hip pain -etiology is unclear -LLE CT showed no evidence of fracture, dislocation or significant soft tissue -xray of the lumbar spine showed degenerative disease of the spine and right 1 anterolisthesis of L4 on L45 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 -fall precautions -PO tylenol, PO oxycodone and IV hydromorphone prn for pain. Also on Medrol Dosepak and topical lidocaine as well as gabapentin as needed -12/12: Spoke with Dr. 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 He spoke with Dr. Heredia and Lovenox held, possible epidural injection tomorrow and if better he can be DC'd home and follow-up with Dr. Guzmán in 1 week. #Bradycardia -Has had some intermittent heart rates in 40s to 50s, most recently very early this a.m. but has been within normal limits since he has been up and moving around -Denies any symptoms at this time -EKG done showed sinus rhythm with heart rate around 61. -2D echo showed EF of 45 to 50% with structurally normal valves.? Left atrium is mildly enlarged. -Continue to monitor on telemetry -12/12: No further episodes #Hypertension -On lisinopril as well as hydrochlorothiazide.IV hydralazine prn #History of gout -on allopurinol DVT prophylaxis; lovenox on hold. Start SCDs Charges/Coding Visit Charges Inpatient E&M: 86388 Subs Hosp L2
[2022-12-12 15:18] VITALS: BP 129/104; PULSE 95; RESP 18; TEMP 36.9; O2SAT 98
[2022-12-12] MEDS: Allopurinol 100 MG Tablet 200 MG PO (18:01)
[2022-12-12 18:40] LABS: Bedside Glucose 313 mg/dL (74-106)
[2022-12-12 21:33] VITALS: BP 140/96; PULSE 75; RESP 18; TEMP 36.8; O2SAT 96
[2022-12-12 23:11] LABS: Bedside Glucose 258 mg/dL (74-106)
[2022-12-13] VITALS (14 sets, daily range): BP systolic 64–138; BP diastolic 48–102; PULSE 67–99; RESP 16–18; TEMP 36.3–36.8; O2SAT 94–99; BMI 31.6
[2022-12-13] MEDS: Insulin Lispro 100 UNIT/ML INSULN.PEN SC ×2 (06:40→17:10)
[2022-12-13 06:55] LABS: Bedside Glucose 268 mg/dL (74-106)
[2022-12-13] MEDS: MethylPREDNISolone DosePak 4 MG BOX PO ×3 (07:56→22:42)
[2022-12-13] MEDS: Allopurinol 100 MG Tablet 300 MG PO (07:57)
[2022-12-13] MEDS: 0.9% Saline Lock 10 ML Syringe IV (07:57)
[2022-12-13] MEDS: Acetaminophen 325 MG Tablet 650 MG PO ×3 (07:59→22:51)
[2022-12-13] MEDS: Lisinopril 10 MG Tablet PO (08:05)
[2022-12-13] MEDS: hydroCHLOROthiazide 25 MG Tablet PO (08:05)
[2022-12-13] MEDS: oxyCODONE 5 MG Tablet PO (08:14)
[2022-12-13] MEDS: Gabapentin 100 MG Capsule PO (08:14)
[2022-12-13 13:11] LABS: Bedside Glucose 228 mg/dL (74-106)
[2022-12-13] MEDS: Lactated Ringers 1,000 ML 15 ML IV (13:22)
--- NOTE | 2022-12-13 14:50 | RAD_ITS ---
STUDY: X-RAY - LUMBAR SPINE REASON FOR EXAM: Male, 67 years old. BLOCK L2-3 TECHNIQUE: 1 view(s) of the lumbar spine were obtained. COMPARISON: None FINDINGS: Intraoperative imaging provided for L2-L3 lumbar block.. _ RAD/Spine 1 View Any Level IMPRESSION: Intraoperative imaging provided for L2-L3 lumbar block. Electronically Signed: Marky Morales MD at 8:14 EDT ,
[2022-12-13] MEDS: Lidocaine 0.5% (50 ml) 50 ML Vial (15:03)
[2022-12-13] MEDS: Triamcinolone Acetonide 40 MG/ML Vial ×2 (15:03)
--- NOTE | 2022-12-13 16:21 | NURSING ---
Addendum entered by Mar See 12/13/22 16:51: 1627-Dr Stallings notified. V/O obtained for 500ml bolus NS. Original Note: Pt became lightheaded walking from bed to doorway, became unsteady on feet and stumbled. Assisted back to bed. BP obtained. Pt stated lightheadness has subsided. Advised to not get out of bed without assistance. Pt verbalized understanding. Bandages to puncture sights c/d/i.
--- NOTE | 2022-12-13 16:36 | PCM.PN.HOSP ---
Reason for Visit Reason for Visit: Diagnoses Essential (primary) hypertension (12/10/22) Pain, unspecified (12/10/22) Subjective Subjective Was feeling better this a.m. but still had pain especially with movement. For epidural today. Objective Data Objective Data Vital Signs: Vital Signs Temp Pulse Resp BP Pulse Ox O2 Del Method 98.1 F 73 16 91/68 97 Room Air 12/13/22 16:10 12/13/22 16:10 12/13/22 16:10 12/13/22 16:21 12/13/22 16:10 12/13/22 16:10 Oxygen Delivery Method Room Air Weight: 100.2 kg Body Mass Index (BMI) 31.6 Intake & Output: Intake and Output for Last 24 Hours 12/11/22 12/12/22 12/13/22 23:59 23:59 23:59 Intake Total 1100 / 1100 Output Total 2250 / 2250 750 / 750 Balance -1150 / -1150 -750 / -750 Lab / Micro Data Result Diagrams: 12/12/22 05:05 12/12/22 05:05 Labs: Laboratory Results - last 24 hr 12/12/22 17:57: POC Glucose 313 H 12/12/22 21:36: POC Glucose 258 H 12/13/22 06:22: POC Glucose 268 H 12/13/22 12:47: POC Glucose 228 H Physical Exam Narrative General: Alert, oriented, no apparent distress HEENT: Atraumatic, normocephalic Eyes: Anicteric, normal conjunctiva, extraocular movements grossly intact Neck: Supple Respiratory: Clear to auscultation bilaterally, normal respiratory effort Cardiovascular: Regular rate and rhythm GI: Soft, nontender, nondistended Extremities: No edema Musculoskeletal: Moving all extremities Neuro: No overt focal neurological deficits Skin: No rashes appreciated Psych: Cooperative Assessment & Plan Assessment/Plan (1) Intractable pain: PLAN: Plan #Hypotension -Hypotensive during procedure and had episode of presyncope with systolic in the 90s on the floor. Given fluids. Suspect it is due to anesthesia and will improve. We will hold blood pressure medication #Intractable left hip pain -etiology is unclear -LLE CT showed no evidence of fracture, dislocation or significant soft tissue -xray of the lumbar spine showed degenerative disease of the spine and right 1 anterolisthesis of L4 on L45 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 -fall precautions -PO tylenol, PO oxycodone and IV hydromorphone prn for pain. Also on Medrol Dosepak and topical lidocaine as well as gabapentin as needed -12/12: Spoke with Dr. 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 He spoke with Dr. Heredia and Lovenox held, possible epidural injection tomorrow and if better he can be DC'd home and follow-up with Dr. Guzmán in 1 week. -12/13: Status post epidural injection #Bradycardia -Has had some intermittent heart rates in 40s to 50s, most recently very early this a.m. but has been within normal limits since he has been up and moving around -Denies any symptoms at this time -EKG done showed sinus rhythm with heart rate around 61. -2D echo showed EF of 45 to 50% with structurally normal valves.? Left atrium is mildly enlarged. -Continue to monitor on telemetry -12/12: No further episodes #Hypertension -Holding medications due to an episode of hypotension #History of gout -on allopurinol DVT prophylaxis; lovenox on hold. Start SCDs Charges/Coding Visit Charges Inpatient E&M: 27771 Subs Hosp L2
[2022-12-13] MEDS: Allopurinol 100 MG Tablet 200 MG PO (17:11)
[2022-12-13 17:30] LABS: Bedside Glucose 233 mg/dL (74-106)
[2022-12-14 00:07] LABS: Glucose 571 mg/dL (74-106)
--- NOTE | 2022-12-14 00:16 | NURSING ---
Pt BGT resulted as 525. Serum glucose obtained, resulted at 571. MD notified and orders placed for Humalog 12 units x1.
[2022-12-14] MEDS: Insulin Lispro 100 UNIT/ML INSULN.PEN 12 UNIT SC (00:19)
[2022-12-14 01:46] LABS: Bedside Glucose 444 mg/dL (74-106)
[2022-12-14 05:29] VITALS: BMI 31.7
[2022-12-14 06:05] VITALS: BP 119/68; PULSE 62; RESP 18; TEMP 36.4; O2SAT 95
[2022-12-14] MEDS: Insulin Lispro 100 UNIT/ML INSULN.PEN SC ×2 (06:52→11:31)
[2022-12-14 07:15] LABS: Bedside Glucose 317 mg/dL (74-106)
[2022-12-14 10:16] VITALS: BP 111/79; PULSE 70; RESP 16; TEMP 36.6; O2SAT 97
[2022-12-14] MEDS: Gabapentin 100 MG Capsule PO ×2 (10:19→13:06)
[2022-12-14] MEDS: Allopurinol 100 MG Tablet 300 MG PO (10:19)
[2022-12-14] MEDS: Enoxaparin 40 MG/0.4 ML Syringe SC (10:20)
[2022-12-14] MEDS: Acetaminophen 325 MG Tablet 650 MG PO (10:25)
[2022-12-14 10:26] LABS: Anion Gap 13 (5-15); BUN 57 mg/dL (7-18); BUN/Creat Ratio 41.9 RATIO (10-20); Calcium,Total 9.3 mg/dL (8.5-10.1); Chloride 97 mmol/L (98-107); Creatinine, Serum 1.36 mg/dL (0.70-1.30); EST Glomerular Filtration Rate 56 mL/min (>60); Est Glom Filt Rate - Afr Amer 68 mL/min (>60); Estimated Creatinine Clearance 55.91 ml/min; Glucose 382 mg/dL (74-106); Potassium 4.5 mmol/L (3.5-5.1); Sodium Level 133 mmol/L (136-145)
[2022-12-14] MEDS: 0.9% Saline Lock 10 ML Syringe IV (11:30)
[2022-12-14 12:05] LABS: Bedside Glucose 363 mg/dL (74-106)
--- NOTE | 2022-12-14 12:28 | DS.PCM_ITS ---
Providers Date of Admission: 12/10/22 Date of Discharge: 12/14/22 Primary Care Physician: [facility] Consultations 12/10/22 06:53 Consult: Orthopedics Routine Consulting Provider: Dami Thakkar Reason for Consult: Intractable L hip pain EMERGENT Consult: No MD Notified: Yes Date Notified: 12/10/22 Time Notified: 11:30 Method of Notification: Verbal Comments:: Consult called by Tello CRAFT returned call to PCU. 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 #Bradycardia resolved #Hypertension #History of gout Medications at Discharge Home Medications cyclobenzaprine 10 mg tablet 10 mg PO BID PRN muscle spasm #10 tabs 08/23/22 allopurinol 100 mg tablet 100 mg PO BREAKFAST gout 12/10/22 allopurinol 100 mg tablet 100 mg PO DINNER gout 12/10/22 hydrochlorothiazide 12.5 mg capsule 12.5 mg PO DAILY diuretic 12/10/22 lisinopril 10 mg tablet 10 mg PO DAILY blood pressure 12/10/22 metformin 1,000 mg tablet 1,000 mg PO TID diabetes 12/10/22 glipizide 5 mg tablet 2.5 mg PO DAILY 30 days #15 tabs 12/14/22 Hospital Course Procedures - (Epidural injection for pain, echocardiogram, MRI) Summary of Care Provided Hospital Course: The patient is a 67 y/o M w/ PMHx: Obesity, Gout, HTN, Diabetes mellitus type II, OA who presents to the [facility] ED on 12/10/22 with history of onset intractable left hip pain starting on Monday who presented to [facility] 12/10 with inability to ambulate secondary to pain. CT of the left hip with no evidence of fracture dislocation. He was given medication for the pain and hospitalist consulted for admission. At that time he was started on Medrol Dosepak and gabapentin and had an MRI of the spine ordered as well as a consult to orthopedics. MRI of the spine demonstrated severe left lateral recess stenosis and effacement of left L3 root. Dr. Guzmán reviewed and spoke with Dr. Perez who performed an epidural injection for pain which was significantly helpful. Initial plan was to discharge patient after procedure however he had iatrogenic hypotension and was given fluids and monitored overnight with improvement. Due to being on steroids he also had significantly elevated blood sugars and also reported noncompliance with a diabetic diet on the night prior when he had a significant spike. 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 He did have echo which showed EF 45 to 50%. On day of discharge she had BMP with slight bump in creatinine which was presumed to be due to his hypotension last night, he is doing very well today however. Given 500 cc bolus. Discussed discharge with patient he has no complaints and reports pain is significantly better. Agreeable to discharge at this time. Discharge instructions as followed: -You were admitted to the hospital due to left leg and buttock pain and were seen by Dr. Guzmán with orthopedics and Dr. Perez with pain management who performed an injection in her back to help with pain. -Information for follow-up with Dr. Guzmán and Dr. Perez will be provided.? You indicated that [facility], if [facility] are [facility] to [facility] please call to schedule appointments with Dr. Guzmán and Dr. Perez. -You had an episode of low blood pressure and your blood pressure medications were held.? Please do not take your hydrochlorothiazide or your lisinopril immediately upon discharge.? Would recommend checking your blood pressure daily and logging this.? If the top number (your systolic blood pressure) is greater than 130 you can resume her hydrochlorothiazide.? Would recommend discussing with your primary care physician on optimal timing to resume lisinopril after kidney function is checked. -Because your kidney function was slightly reduced your metformin has been held and a new prescription, Jardiance, was sent to preferred pharmacy on file.? Would call upon discharge to discuss all of these changes with your primary care physician and to schedule hospital follow-up appointment. -Due to your low blood pressure you also had a slight decrease in your kidney function and were given fluids prior to discharge. - Would recommend lab work (BMP) to check your kidney function in 3 to 5 days through your primary care physician's office.? Please call their office upon discharge to obtain order for lab work. -Would recommend against taking naproxen or ibuprofen until following up with your physician and verifying kidney function continue to improve -Please call your primary care provider's office upon discharge to schedule a hospital follow up within 1 week. -For any concerning signs or symptoms please call 911 or proceed to the nearest emergency department Physical Exam Narrative General: Alert, oriented, no apparent distress HEENT: Atraumatic, normocephalic Eyes: Anicteric, normal conjunctiva, extraocular movements grossly intact Neck: Supple Respiratory: Clear to auscultation bilaterally, normal respiratory effort Cardiovascular: Regular rate and rhythm GI: Soft, nontender, nondistended Extremities: No edema Musculoskeletal: Moving all extremities Neuro: No overt focal neurological deficits Skin: No rashes appreciated Psych: Cooperative Weight / BMI Weight Weight: 100.3 kg Body Mass Index (BMI) 31.7 ABG / Lab / Microbiology Data Result Diagrams: 12/12/22 05:05 12/14/22 10:02 Laboratory: Laboratory Results - last 24 hr 12/13/22 12:47: POC Glucose 228 H 12/13/22 17:09: POC Glucose 233 H 12/13/22 23:24: Glucose 571 H* 12/14/22 01:21: POC Glucose 444 H 12/14/22 06:51: POC Glucose 317 H 12/14/22 10:02: Sodium 133 L, Potassium 4.5, Chloride 97 L, Carbon Dioxide 23.0, Anion Gap 13, BUN 57 H, Creatinine 1.36 H, Estim Creat Clear Calc 55.91, Est GFR (MDRD) Af Amer 68, Est GFR (MDRD) Non-Af 56 L, BUN/Creatinine Ratio 41.9 H, Glucose 382 H, Calcium 9.3 12/14/22 11:34: POC Glucose 363 H Radiography Diagnostic Testing: Radiology Impression Spine X-Ray 12/13/22 14:50 IMPRESSION: Intraoperative imaging provided for L2-L3 lumbar block. Electronically Signed: Marky Morales MD at 8:14 EDT , D/C Instructions Discharge Diet: - (1800-calorie controlled diet) Meaningful Use Info Meaningful Use Diagnoses (Choose all that apply): None applicable Discharge Plan Admission Admit Date/Time: 12/10/22 05:21 Primary Reason for Your Visit: Leg pain Attending Provider: Patience Hernandez Primary Care Provider: [facility] Consulting Providers: Keeley Gutiérrez ; Dami Thakkar ; Gabbi Duarte Instructions Patient Instructions: Back Safety Bed, Back Safety: Bending Additional Instructions / Restrictions: DISCHARGE INSTRUCTIONS PLEASE READ *Please take this with you to your next doctors appointment* -You were admitted to the hospital due to left leg and buttock pain and were seen by Dr. Guzmán with orthopedics and Dr. Perez with pain management who performed an injection in her back to help with pain. -Information for follow-up with Dr. Guzmán and Dr. Perez will be provided. You indicated that follow[facility], if you are unable to [facility] please call to schedule appointments with Dr. Guzmán and Dr. Perez. -You had an episode of low blood pressure and your blood pressure medications were held. Please do not take your hydrochlorothiazide or your lisinopril immediately upon discharge. Would recommend checking your blood pressure daily and logging this. If the top number (your systolic blood pressure) is greater than 130 you can resume her hydrochlorothiazide. Would recommend discussing with your primary care physician on optimal timing to resume lisinopril after kidney function is checked. -Because your kidney function was slightly reduced your metformin has been held and a new prescription, Jardiance, was sent to preferred pharmacy on file. Would call upon discharge to discuss all of these changes with your primary care physician and to schedule hospital follow-up appointment. -Due to your low blood pressure you also had a slight decrease in your kidney function and were given fluids prior to discharge. - Would recommend lab work (BMP) to check your kidney function in 3 to 5 days through your primary care physician's office. Please call their office upon discharge to obtain order for lab work. -Would recommend against taking naproxen or ibuprofen until following up with your physician and verifying kidney function continue to improve -Please call your primary care provider's office upon discharge to schedule a hospital follow up within 1 week. -For any concerning signs or symptoms please call 911 or proceed to the nearest emergency department Discharge Orders/Prescriptions Prescriptions: New glipizide 5 mg tablet 2.5 mg PO DAILY 30 Days Qty: 15 0RF Rx Instructions: Take 30 minutes before your first main meal Continued cyclobenzaprine 10 mg tablet 10 mg PO BID PRN (Reason: muscle spasm) Qty: 10 0RF allopurinol 100 mg Tablet 100 mg PO BREAKFAST Rx Instructions: takes 3 tabs in the morning allopurinol 100 mg Tablet 100 mg PO DINNER Rx Instructions: takes 2 tabs in the evening. Held hydrochlorothiazide 12.5 mg Capsule 12.5 mg PO DAILY Hold Instructions: Resume on 12/21/22. Rx Instructions: takes with linsiniprinl 10 mg po lisinopril 10 mg Tablet 10 mg PO DAILY Hold Instructions: Resume on 12/21/22. Rx Instructions: combo med with HCTZ 12.5 mg metformin 1,000 mg Tablet 1,000 mg PO TID Hold Instructions: Resume on 12/21/22. Rx Instructions: with meals Discontinued naproxen [Naprosyn] 500 mg tablet 500 mg PO BID PRN (Reason: pain) Qty: 20 0RF amoxicillin 500 mg capsule 500 mg PO TID Label Comments: TAKE 1 CAPSULE BY MOUTH THREE TIMES DAILY FOR 7 DAYS Rx Instructions: X7 DAYS Referrals / Follow Up: Jovanna Perez MD [Med Staff - Active Staff] - None Junaid Guzmán DO [Med Staff - Active Staff] - [facility] [Primary Care Provider[facility] - Within 1 Week Disposition Disposition (needs filled in before D/C Order can be placed): Home, Self Care Charges/Coding Visit Charges Inpatient E&M: 32236 Disch Hosp >30min
== END 2022-12-14 14:43 | disposition home or self-care (01) ==
LOC: ED 12-10 05:25 → MS3 12-10 05:46 → PCU 12-10 08:51
PROVIDERS: Anesthesiology Pain Medicine; Student in an Organized Health Care Education/Training Program; Admitting Provider Family Medicine; Emergency Provider Emergency Medicine; Visit Provider Internal Medicine
PROC: 3E0S3BZ Introduction of Anesthetic Agent into Epidural Space, Percutaneous Approach (ICD-10-PCS; CPT 62322; principal; 2022-12-13 14:25)
DX: M48.061 Spinal stenosis, lumbar region without neurogenic claudication (principal); E11.9 Type 2 diabetes mellitus without complications; M16.12 Unilateral primary osteoarthritis, left hip; I95.89 Other hypotension; I10 Essential (primary) hypertension; R00.1 Bradycardia, unspecified; E66.9 Obesity, unspecified; Z68.32 Body mass index [BMI] 32.0-32.9, adult; M54.16 Radiculopathy, lumbar region; Z79.84 Long term (current) use of oral hypoglycemic drugs; Z79.899 Other long term (current) drug therapy; M10.9 Gout, unspecified
CPT/HCPCS: 62323; 01992; 64483; 99285; 36415; 72020; 72158; 72195; 73700; 80048; 80053; 82947; 82962; 83036; 83735; 84484; 85025; 85652; 86140; 93005; 93306; 94668; 96361; 96372; 96374; 96375; 96376; 97116; 97162; 97166; 97530; 97802; 99221; A9575; J7030; J7040; J7120; Q9957; A4216; C8929; G0378

== ENCOUNTER 2022-12-18 22:50 | Emergency (ER) | payer OTHER, SELFPAY ==
[2022-12-18 22:50] VITALS: BP 113/84; PULSE 96; RESP 18; TEMP 35.8
[2022-12-18 22:51] VITALS: BP 113/84; PULSE 96; RESP 16; TEMP 35.8; BMI 30.1
--- NOTE | 2022-12-18 23:13 | EDS_ITS ---
HPI History of Present Illness Chief Complaint: General Illness Informant: patient Onset/Context/Timing Onset: Today and Yesterday Context: Gradual Onset Timing: Continuous Current Severity: Mild Maximum Severity: Mild Narrative Narrative: 67-year-old male history of diabetes, hypertension, gout and lumbar disc diseas e. He was admitted to the hospital and discharged on Monday. He had an epidural back injection for an L2-3 disc with radiculopathy. Said he felt really good on Monday to start having malaise. Said he changed his blood sugar medication from metformin to glipizide and his blood sugars have been running high. He has had some mild nausea. Denies any dysuria. No fever. Said he feels just a little weak. He said while in the hospital he had some episodes of low blood pressure so that he can hold his blood pressure until now where he restarted because his systolic went back over 130. He denies any chest or abdominal pain Prior similar symptoms: Yes Recent Illness/Hospitalization: Yes PFSH [facility] Medical History DDD (degenerative disc disease) Diabetes Gout HTN (hypertension) Obesity (BMI 30.0-34.9) Home Medications cyclobenzaprine 10 mg tablet 10 mg PO BID PRN muscle spasm #10 tabs 08/23/22 [Rx Last Taken Unknown] allopurinol 100 mg tablet 100 mg PO BREAKFAST gout 12/10/22 [History Last Taken Unknown] allopurinol 100 mg tablet 100 mg PO DINNER gout 12/10/22 [History Last Taken Unknown] hydrochlorothiazide 12.5 mg capsule 12.5 mg PO DAILY diuretic 12/10/22 [History Last Taken Unknown] lisinopril 10 mg tablet 10 mg PO DAILY blood pressure 12/10/22 [History Last Taken Unknown] metformin 1,000 mg tablet 1,000 mg PO TID diabetes 12/10/22 [History Last Taken Unknown] glipizide 5 mg tablet 2.5 mg PO DAILY 30 days #15 tabs 12/14/22 [Rx Last Taken Unknown] Allergy/AdvReac Type Severity Reaction Status Date / Time No Known Allergies Allergy Verified 12/09/22 23:14 Family History Mother Rheumatoid arthritis Father Diabetes Surgical History History of appendectomy History of tonsillectomy and adenoidectomy Social History household members: none Smoking Status: Never smoker alcohol intake: current alcohol intake frequency: holidays/special occasions only substance use type: does not use ROS ROS ED ROS Narrative Nausea. Malaise. Review of Systems ROS Unobtainable: Denies due to encephalopathy Constitutional Constitutional ED: Denies fever(s) Eyes Eyes: Denies blurry vision ENT ENT ED: Denies ear pain Cardiovascular Cardiovascular: Denies chest pain Respiratory/Chest Respiratory/Chest: Denies cough or dyspnea Gastrointestinal Gastrointestinal: Reports nausea; Denies abdominal pain, constipation, diarrhea or vomiting Genitourinary Genitourinary ED: Denies dysuria or hematuria Musculoskeletal Musculoskeletal: Reports back pain; Denies arthralgias Integumentary Denies abscess Neurologic Neurologic: Denies headache(s) Psychiatric Psychiatric: Denies anxiety Endocrine Endocrinology: Denies cold intolerance Hematologic/Lymphatic Hematologic/Lymphatic: Reports none Allergic/Immunologic Allergic/Immunologic ED: Denies mouth swelling or tongue swelling EXAM Physical Exam Narrative Exam Narrative: Well-appearing 67-year-old male. Vital signs are stable and afebrile. Blood pressure 113/84. He does not look septic or toxic. He does not look dehydrated. He is in no distress. H EENT exam unremarkable. Moist extremities. Neck nontender no lymphadenopathy. Lungs clear to auscultation bilaterally. Heart regular rhythm no murmur. Abdomen soft nontender. Normal bowel sounds. No peritoneal signs. Moving all 4 extremities. Normal motor strength and sensation. 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 Normal dorsi plantarflexion. Back nontender. No signs of erythema or bruising. His epidural injection site was unremarkable. Neurologically is awake and alert with no focal motor deficits. Answering questions and following commands. Const Vital Signs: 12/18/22 22:51 12/18/22 22:50 Temperature 96.5 F L 96.5 F L Temperature Source Temporal Temporal Pulse Rate 96 96 Respiratory Rate 16 18 Blood Pressure 113/84 H 113/84 H Blood Pressure Mean 93 93 Positive well nourished and well developed; Negative for cachectic, contractures or unkempt General Appearance ED: well developed and NAD; Negative for unkempt, cachectic, contractures, cyanotic or diaphoretic Nutritional Appearance: Negative for cachectic HEENT Reports moist mucous membranes; Denies dry mucous membranes Negative for trauma or tenderness Mouth ED: No dry mucous membranes Mouth: No dry mucous membranes Eyes PERRL and EOMs intact bilaterally General Eye ED: Negative for pale conjunctiva or scleral icterus Neck no lymphadenopathy, supple and no JVD General: Negative for tenderness Lymph Lymphatic: Negative for other Chest Wall inspection of chest normal and palpation of chest normal Resp normal respiratory effort and clear to auscultation bilaterally Effort and Inspection: Negative for retractions Auscultation: Negative for rales, rhonchi or wheezes Cardio regular rate, regular rhythm, S1 normal heart sound, S2 normal heart sound and no murmurs Palpation: Negative for palpable S3 Rate: Negative for bradycardia Rhythm: Negative for abnormal rhythm GI normal to inspection, nondistended, normoactive bowel sounds, non-tender, non- distended and no masses Inspection: Negative for abdominal distention Palpation: soft; Negative for tender or guarding Back/Spine no CVA tenderness General Back: Negative for CVA tenderness Cervical Spine: Negative for cervical spine tenderness Thoracic Spine / Upper Back: Negative for thoracic spinal tenderness Lumbar Spine / Lower Back: Negative for lumbar spinal tenderness Extremity normal to inspection General Extremety ED: Negative for edema or tenderness General Extremity: Negative for edema Neuro oriented x3 and CN's II-XII intact bilaterally Sensorium / Orientation: alert; Negative for orientation impaired or lethargic Sensory Exam: No sensory level loss detected Motor Exam: strength 5/5 throughout Psych mental status grossly normal Appearance: Negative for unkempt Attitude: No agitated Mood & Affect: Negative for depressed or anxious Skin no rashes or lesions noted, no wounds and skin turgor normal General Skin Exam: Negative for elasticity normal Lesions: No lesion noted Rashes: No rashes noted Trauma: Negative for abrasion Wounds: Negative for wounds noted MDM MDM MDM Narrative Medical decision making narrative: 67-year-old recent hospitalization for degenerative disc disease of his back and pain. Complaining of elevated blood sugars and malaise. Screening labs will be obtained. Clinically I do not think he is in DKA has never been before. He will be given a liter normal saline. Screening labs will be evaluated. Repeat exams at 12:30 AM and also at 1:55 AM. Patient doing well. We went over his test results. He will be discharged home. Fluids and rest. Follow-up with his primary care physician. History & Record Review Discussion w/independent historian: Patient Lab Data Attestation: I reviewed the patient's lab results. Lab results narrative: Patient is white count is elevated 24,000. H&H is 16.5 and 46.8. Platelets 545. Electrolytes show sodium 130. Gap of 11 BUN of 55 creatinine 1.3 consis tent with dehydration. Glucose 247. Liver enzymes are unremarkable. Due to the patient's elevated white count I did get a urinalysis which was also normal. Chest x-ray portable showed no acute abnormality. White count may be elevated due to dehydration. He has had elevated white counts recently. Labs: Laboratory Results - last 24 hr 12/18/22 12/18/22 12/18/22 23:03 23:20 23:20 WBC 24.0 H RBC 5.11 Hgb 16.5 Hct 46.8 MCV 91.6 MCH 32.3 H MCHC 35.3 RDW Std Deviation 43.0 RDW Coeff of Micaela 12.8 Plt Count 545 H MPV 9.7 Sodium 130 L Potassium 4.7 Chloride 99 Carbon Dioxide 20.0 L Anion Gap 11 BUN 55 H Creatinine 1.33 H Estim Creat Clear Calc 57.17 Est GFR (MDRD) Af Amer 69 Est GFR (MDRD) Non-Af 57 L BUN/Creatinine Ratio 41.4 H Glucose 247 H Calcium 10.4 H Total Bilirubin 1.40 H AST 19 ALT 67 H Alkaline Phosphatase 60 Total Protein 7.0 Albumin 3.5 Globulin 3.5 Albumin/Globulin Ratio 1.0 Urine Color Urine Clarity Urine pH Ur Specific [place] Urine Protein Urine Glucose (UA) Urine Ketones Urine Occult Blood Urine Nitrite Urine Bilirubin Urine Urobilinogen Ur Leukocyte Esterase Urine RBC Urine WBC Ur Squamous Epith Cells Urine Bacteria Urine Mucus POC Glucose 272 H 12/19/22 00:45 WBC RBC Hgb Hct MCV MCH MCHC RDW Std Deviation RDW Coeff of Micaela Plt Count MPV Sodium Potassium Chloride Carbon Dioxide Anion Gap BUN Creatinine Estim Creat Clear Calc Est GFR (MDRD) Af Amer Est GFR (MDRD) Non-Af BUN/Creatinine Ratio Glucose Calcium Total Bilirubin AST ALT Alkaline Phosphatase Total Protein Albumin Globulin Albumin/Globulin Ratio Urine Color Yellow Urine Clarity Clear Urine pH 6.0 Ur Specific [place] 1.020 Urine Protein 15 H Urine Glucose (UA) 250 H Urine Ketones 5 H Urine Occult Blood Negative Urine Nitrite Negative Urine Bilirubin Negative Urine Urobilinogen Normal Ur Leukocyte Esterase Negative Urine RBC 0 SEEN Urine WBC 0-5 SEEN Ur Squamous Epith Cells 0 SEEN Urine Bacteria 0 SEEN Urine Mucus 0 SEEN POC Glucose Radiography Chest X-Ray - ED: 1 View, Read by ED Physician, Read by Radiologist, Heart, Lungs, Mediastinum, Bony Structures, No Acute Disease and Chronic Changes Diagnostic Testing: Clinical Impression(s) from Imaging Studies Chest X-Ray 12/19/22 00:25 IMPRESSION: No radiographic evidence of acute cardiopulmonary disease. Electronically Signed: Shelby Harrington MD at 0:38 EDT , Chest x-ray, portable, single view, interpreted both by myself and the radiologist shows no acute abnormality. Normal cardiac silhouette. Normal lung luna. No infiltrates. Radiologist also read that I chest x-ray and agrees no acute abnormality. Discharge Plan Triage Chief Complaint: General Illness ED Provider: Andrew Del Cid Dx/Rx/DC Orders Prescriptions: No Action cyclobenzaprine 10 mg tablet 10 mg PO BID PRN (Reason: muscle spasm) Qty: 10 0RF hydrochlorothiazide 12.5 mg Capsule 12.5 mg PO DAILY Hold Instructions: Resume on 12/21/22. Rx Instructions: takes with linsiniprinl 10 mg po lisinopril 10 mg Tablet 10 mg PO DAILY Hold Instructions: Resume on 12/21/22. Rx Instructions: combo med with HCTZ 12.5 mg metformin 1,000 mg Tablet 1,000 mg PO TID Hold Instructions: Resume on 12/21/22. Rx Instructions: with meals allopurinol 100 mg Tablet 100 mg PO BREAKFAST Rx Instructions: takes 3 tabs in the morning allopurinol 100 mg Tablet 100 mg PO DINNER Rx Instructions: takes 2 tabs in the evening. glipizide 5 mg tablet 2.5 mg PO DAILY 30 Days Qty: 15 0RF Rx Instructions: Take 30 minutes before your first main meal Primary Care Provider: [facility],[place] Referrals: [facility],[place] [Primary Care Provider] -
[2022-12-18 23:25] LABS: Bedside Glucose 272 mg/dL (74-106)
[2022-12-18] MEDS: 0.9% Normal Saline 1,000 ML 1000 ML IV (23:35)
[2022-12-18 23:39] LABS: Hematocrit 46.8 % (40-54); Hemoglobin 16.5 g/dL (13.0-16.5); Mean Corp Hgb Conc 35.3 g/dL (32-36); Mean Corpuscular Hgb 32.3 pg (27.0-32.0); Mean Corpuscular Volume 91.6 fL (80-94); Mean Platelet Vol. 9.7 fl (6.2-12.0); Platelet Count 545 K/mm3 (150-450); RBC Distribution Width CV 12.8 % (11.6-14.6); Red Blood Count 5.11 M/mm3 (4.6-6.2)
[2022-12-18] MEDS: Acetaminophen 500 MG Tablet 1000 MG PO (23:44)
[2022-12-18 23:48] LABS: AST(SGOT) 19 U/L (15-37); Alanine Aminotransfer ALT/SGPT 67 U/L (16-61); Albumin, Serum 3.5 g/dL (3.2-5.0); Alkaline Phosphatase 60 U/L (45-117); Anion Gap 11 (5-15); BUN 55 mg/dL (7-18); BUN/Creat Ratio 41.4 RATIO (10-20); Calcium,Total 10.4 mg/dL (8.5-10.1); Chloride 99 mmol/L (98-107); Creatinine, Serum 1.33 mg/dL (0.70-1.30); EST Glomerular Filtration Rate 57 mL/min (>60); Est Glom Filt Rate - Afr Amer 69 mL/min (>60); Estimated Creatinine Clearance 57.17 ml/min; Globulin 3.5 g/dL (2.2-4.2); Glucose 247 mg/dL (74-106); Potassium 4.7 mmol/L (3.5-5.1); Sodium Level 130 mmol/L (136-145)
--- NOTE | 2022-12-19 00:25 | RAD_ITS ---
INDICATION: leukocytosis EXAMINATION/TECHNIQUE: X-RAY - XR Chest 1 View COMPARISON: None. FINDINGS: LINES/DEVICES: None. LUNGS: No consolidation, edema or effusion. No pneumothorax. MEDIASTINUM AND CARDIOVASCULAR STRUCTURES: Cardiac silhouette not enlarged. Central airways and mediastinal contour are unremarkable. BONES AND SOFT TISSUES: Unremarkable. RAD/Chest 1 View (Portable) IMPRESSION: No radiographic evidence of acute cardiopulmonary disease. Electronically Signed: Shelby Harrington MD at 0:38 EDT ,
[2022-12-19 00:50] LABS: Bacteria 0 SEEN /hpf (None Seen); Mucous, Urine 0 SEEN /hpf (<or=2+); Red Blood Cells-Urine 0 SEEN /hpf (0-5); Squamous Epithelial Cells - UA 0 SEEN /hpf (0-5)
[2022-12-19 00:52] LABS: Glucose, Dipstick 250 mg/dl (Normal); Ketone-Dipstick 5 mg/dl (Negative); Leukocyte Esterase-Dipstick Negative /ul (Negative); Nitrite-Dipstick Negative (Negative); Occult Blood-Urine Negative /ul (Negative); Protein-Dipstick 15 mg/dl (Negative); Urine Bilirubin Dipstick Negative (Negative); Urine Urobilinogen Normal (Normal)
[2022-12-19 01:09] LABS: Color, Urine Yellow (Yellow); Urine Clarity Clear (Clear); White Blood Cells 0-5 SEEN /hpf (0-5)
[2022-12-19 02:06] VITALS: BP 127/84; PULSE 84; RESP 16; O2SAT 98
== END 2022-12-19 02:07 | disposition home or self-care (01) ==
PROVIDERS: Emergency Provider Emergency Medicine; Visit Provider Emergency Medicine
DX: E11.65 Type 2 diabetes mellitus with hyperglycemia (principal); M54.16 Radiculopathy, lumbar region; R11.0 Nausea; Z79.84 Long term (current) use of oral hypoglycemic drugs; I10 Essential (primary) hypertension; E66.9 Obesity, unspecified; Z79.899 Other long term (current) drug therapy; E86.0 Dehydration
CPT/HCPCS: 71045; 80053; 81001; 82962; 85027; 96360; 96361; 99282; J7030; A4216

== ENCOUNTER 2022-12-20 16:00 | Inpatient (IN) | payer OTHER, SELFPAY ==
[2022-12-20 16:02] VITALS: BP 119/91; PULSE 87; RESP 18; TEMP 35.7; O2SAT 99; BMI 30.1
--- NOTE | 2022-12-20 16:11 | MRI_ITS ---
STUDY: MRI LUMBAR SPINE WITH AND WITHOUT CONTRAST REASON FOR EXAM: Male, 67 years old. Suspect infection, epidural injection L2-L3 -- Elevated white count, persistent with no known source TECHNIQUE: Standardized fat and water weighted pulse sequences were obtained in the sagittal and axial planes. IV 19ml Clariscan was administered for the contrast portion of the examination. COMPARISON: December 11, 2022 FINDINGS: T12-L1: Normal endplates. Normal disc height, hydration and morphology. Normal bilateral facet joints. Normal central canal and bilateral lateral recesses. Normal bilateral intervertebral neural foramina. Normal lumbar lordosis. There is grade 1 retrolisthesis at L2-3. There is grade 1 anterolisthesis at L4-5. There is no substantial scoliosis. Normal conus medullaris that terminates at the T12 level. L1-2: Normal endplates. Normal disc height, hydration and morphology. Normal bilateral facet joints. Normal central canal and bilateral lateral recesses. Normal bilateral intervertebral neural foramina. L2-3: Disc desiccation. Disc bulge and spurring left paracentral disc protrusion, series 5 image 18/. There is 1.2 cm peripherally enhancing diminished signal mass extending inferiorly with neuroma versus extruded fragment. Mild canal stenosis. Neural foramina are patent. L3-4: Disc desiccation. Disc bulge with mild spurring. Facet spurring. No canal stenosis. Mild left foraminal narrowing. L4-5: Disc space narrowing. Disc desiccation. Disc bulge with central and left foraminal disc protrusion, series 5 image /. Facet spurring with effusions and ligamentum flavum hypertrophy. Mild canal stenosis. Left foraminal narrowing. L5-S1: Disc space narrowing with endplate change. Disc desiccation. Disc bulge and spurring with central disc protrusion, series 5 image /20. Facet spurring. No canal stenosis. Right greater than left foraminal narrowing. Normal visualized sacral ala. Normal visualized paraspinous soft tissue structures. There is moderate right hydronephrosis. MRI/Spine Lumbar W/WO Contrast IMPRESSION: Degenerative and postoperative change with disc herniations, canal stenosis, and foraminal narrowing. There is neuroma versus extruded fragment on the left inferior to L2-3. No abscess or fluid collection. Electronically Signed: Aashish Godfrey MD at 19:04 EDT ,
--- NOTE | 2022-12-20 16:19 | EDS_ITS ---
HPI History of Present Illness Chief Complaint: Abn Labs Detail of Chief Complaint: Leukocytosis Informant: patient Onset/Context/Timing Onset: Days (Seen on December 18 for fatigue, elevated blood sugar) Context: Sudden Onset Timing: Continuous Quality: Vague generalized symptoms Location: Not Current Severity: Mild Maximum Severity: Moderate Worsened by: Nothing specific Relieved by: Nothing Associated Symptoms Associated Symptoms: No specific symptom Narrative Narrative: Patient is a 67-year-old male who was seen on December 18 in the emergency department. Patient had an elevated white count. There was no differential. Blood sugar was elevated. He states he has not felt well for the past several days. He had an epidural injection last December 13. He states injection site was L2-L3. He does complain of pain in the left lower back region. He does report chills. He has not measured his temperature. He denies headache, v isual, ocular auditory symptoms. He denies rhinorrhea, congestion, postnasal drainage and sore throat. He does report mild shortness of breath. He denies cough. He does endorse nausea without vomiting or diarrhea. He denies dysuria, frequency, urgency or hematuria. He denies skin lesions. He denies neck pain or neck stiffness. Prior similar symptoms: Yes PFSH [facility] Medical History DDD (degenerative disc disease) Diabetes Gout HTN (hypertension) Obesity (BMI 30.0-34.9) Home Medications allopurinol 100 mg tablet 100 mg PO BREAKFAST gout 12/10/22 [History Last Taken Unknown] allopurinol 100 mg tablet 100 mg PO DINNER gout 12/10/22 [History Last Taken Unknown] hydrochlorothiazide 12.5 mg capsule 12.5 mg PO DAILY diuretic 12/10/22 [History Last Taken Unknown] metformin 1,000 mg tablet 1,000 mg PO TID diabetes 12/10/22 [History Last Taken Unknown] Allergy/AdvReac Type Severity Reaction Status Date / Time No Known Allergies Allergy Verified 12/20/22 16:02 Family History Mother Rheumatoid arthritis Father Diabetes Surgical History History of appendectomy History of tonsillectomy and adenoidectomy Social History household members: none Smoking Status: Never smoker alcohol intake: current alcohol intake frequency: holidays/special occasions only substance use type: does not use ROS ROS ED Constitutional Constitutional ED: Reports chills and sweats; Denies fever(s) or weight loss Eyes Eyes: Denies blurry vision, change in vision or diplopia ENT ENT ED: Denies ear pain, rhinorrhea or sore throat Cardiovascular Cardiovascular: Denies chest pain, orthopnea, palpitations, paroxysmal nocturnal dyspnea or racing heartbeat Respiratory/Chest Respiratory/Chest: Reports dyspnea; Denies cough, dyspnea on exertion, orthopnea, paroxysmal nocturnal dyspnea or sputum Gastrointestinal Gastrointestinal: Reports nausea; Denies abdominal pain, constipation, melena or vomiting Genitourinary Genitourinary ED: Denies dysuria, hematuria or urinary frequency Musculoskeletal Musculoskeletal: Reports back pain; Denies arthralgias or myalgias Integumentary Denies abscess, Abrasions or rash Neurologic Neurologic: Denies headache(s), paresthesias or weakness Psychiatric Psychiatric: Denies anxiety or depression Endocrine Endocrinology: Denies cold intolerance, heat intolerance, polydipsia or polyuria Hematologic/Lymphatic Hematologic/Lymphatic: Reports systems reviewed and no addt'l complaints, except as documented; Denies anemia, easy bleeding or easy bruising Allergic/Immunologic Allergic/Immunologic ED: Denies mouth swelling, tongue swelling or urticaria EXAM Physical Exam Const Vital Signs: 12/20/22 16:02 12/20/22 16:42 12/20/22 16:43 Temperature 96.3 F L 98.2 F Temperature Source Temporal Oral Pulse Rate 87 68 Respiratory Rate 18 18 Respiratory Effort Normal Non-Labored Blood Pressure 119/91 H 106/76 Blood Pressure Mean 100 86 Pulse Ox 99 Oxygen Delivery Method Room Air Room Air 12/20/22 19:57 Temperature 98.3 F Temperature Source Oral Pulse Rate 70 Respiratory Rate 18 Respiratory Effort Blood Pressure 122/86 H Blood Pressure Mean 98 Pulse Ox 98 Oxygen Delivery Method Room Air Positive well nourished and well developed Constitutional Narrative: Patient does not appear well. General Appearance ED: well developed, NAD and pallor HEENT Reports dry mucous membranes HEENT Narrative: Head is atraumatic normocephalic. TMs normal. Nares patent. Posterior pharynx out erythema or exudate. The HEENT exam is normal with the exception of dry mucosa Mouth ED: Yes dry mucous membranes Mouth: dry mucous membranes Eyes PERRL and EOMs intact bilaterally General Eye ED: Negative for pale conjunctiva or scleral icterus Neck no lymphadenopathy, supple and no JVD Resp normal respiratory effort and clear to auscultation bilaterally Cardio regular rate, regular rhythm, S1 normal heart sound, S2 normal heart sound and no murmurs GI normal to inspection, nondistended, normoactive bowel sounds, non-tender, non- distended and no masses; Negative for hepatosplenomegaly Back/Spine no CVA tenderness Back/Spine Narrative: Left paralumbar pain to percussion. There is no central pain to percussion over the lumbar spinous process. Thoracic Spine / Upper Back: Negative for thoracic spinal tenderness Lumbar Spine / Lower Back: lumbar spinal tenderness Neuro oriented x3, CN's II-XII intact bilaterally and no sensory deficits noted Sensorium / Orientation: alert Motor Exam: strength 5/5 throughout Psych mental status grossly normal Skin no rashes or lesions noted, no wounds and skin turgor normal General Skin Exam: pallor; Negative for jaundice MDM MDM MDM Narrative Medical decision making narrative: Patient presents with leukocytosis documented on 12 18. White count was 24,000 differential was not obtained. Patient had repeat blood work today and CBC revealed markedly elevated white count as well. Patient did not know di fferential. Unable to review results from outside facility. There is no record of patient in [facility]. With a negative chest x-ray on December 18 and a negative urine on December 19 and the fact the patient is not tachypneic hypoxic and has a normal auscultatory exam chest x-ray was not repeated. UA was not repeated since he has no urinary symptoms. CBC with differential was obtained. Blood cultures were obtained. Concerned that patient may have a discitis or or osteomyelitis or epidural abscess we will obtain an MRI with and without contrast since there is no other obvious source based on history and physical exam and review of prior records from the past 48 hours. Since technically the source is unknown he was treated with vancomycin and Zosyn after blood cultures were obtained. History & Record Review Additional record(s) reviewed:: Prior ED visit and Prior labs Lab Data Attestation: I reviewed the patient's lab results. Lab results narrative: Count is 24.8 thousand with shift. Comprehensive metabolic panel reveals hyponatremia, sodium 128. CO2 is 19 with a normal anion gap. BUN is 51 with a creatinine of 1.25. Glucose is elevated 172. Lactate is elevated 2.4. Total bili slightly elevated 1.2 which is nonsignificant. C-reactive protein is normal. BUN and creatinine are unchanged over the past week. Glucose is elevated at 172 with a normal anion gap however CO2 to is 19. Labs: Laboratory Results - last 24 hr 12/20/22 12/20/22 12/20/22 16:24 16:24 16:24 WBC 24.8 H RBC 5.08 Hgb 16.3 Hct 46.0 MCV 90.6 MCH 32.1 H MCHC 35.4 RDW Std Deviation 42.1 RDW Coeff of Micaela 12.7 Plt Count 548 H MPV 9.8 Immature Gran % (Auto) 1.100 H Neut % (Auto) 81.4 H Lymph % (Auto) 10.7 L [place] % (Auto) 6.2 Eos % (Auto) 0.3 Baso % (Auto) 0.3 Absolute Neuts (auto) 20.2 H Absolute Lymphs (auto) 2.66 Nucleated RBC % 0 Differential Comment SEE COMMENT Diff Path Review May foll Platelet Estimate MOD INC RBC Morphology N CHROM Anisocytosis RARE Macrocytosis RARE ESR 7 Sodium 128 L Potassium 4.6 Chloride 100 Carbon Dioxide 19.0 L Anion Gap 9 BUN 51 H Creatinine 1.25 Estim Creat Clear Calc 60.83 Est GFR (MDRD) Af Amer 75 Est GFR (MDRD) Non-Af 62 BUN/Creatinine Ratio 40.8 H Glucose 172 H Lactic Acid 2.4 H* Calcium 10.2 H Total Bilirubin 1.20 H AST 21 ALT 61 Alkaline Phosphatase 57 C-React Prot Ext Range < 2.90 Total Protein 7.0 Albumin 3.5 Globulin 3.5 Albumin/Globulin Ratio 1.0 Procalcitonin 12/20/22 18:13 WBC RBC Hgb Hct MCV MCH MCHC RDW Std Deviation RDW Coeff of Micaela Plt Count MPV Immature Gran % (Auto) Neut % (Auto) Lymph % (Auto) Sherman % (Auto) Eos % (Auto) Baso % (Auto) Absolute Neuts (auto) Absolute Lymphs (auto) Nucleated RBC % Differential Comment Diff Path Review Platelet Estimate RBC Morphology Anisocytosis Macrocytosis ESR Sodium Potassium Chloride Carbon Dioxide Anion Gap BUN Creatinine Estim Creat Clear Calc Est GFR (MDRD) Af Amer Est GFR (MDRD) Non-Af BUN/Creatinine Ratio Glucose Lactic Acid Calcium Total Bilirubin AST ALT Alkaline Phosphatase C-React Prot Ext Range Total Protein Albumin Globulin Albumin/Globulin Ratio Procalcitonin 0.11 H Radiography Diagnostic Testing: Clinical Impression(s) from Imaging Studies Lumbar Spine MRI 12/20/22 16:11 IMPRESSION: Degenerative and postoperative change with disc herniations, canal stenosis, and foraminal narrowing. There is neuroma versus extruded fragment on the left inferior to L2-3. No abscess or fluid collection. Electronically Signed: Aashish Godfrey MD at 19:04 EDT , Discharge Plan Triage Chief Complaint: Abn Labs Other Complaint: Back Nausea/Vomiting ED Provider: Yang Brian Dx/Rx/DC Orders Clinical Impression: Leukocytosis, Type 2 diabetes mellitus with hyperglycemia, Dehydration, History of hypertension, Elevated procalcitonin Prescriptions: No Action hydrochlorothiazide 12.5 mg Capsule 12.5 mg PO DAILY Hold Instructions: Resume on 12/21/22. Rx Instructions: takes with linsiniprinl 10 mg po metformin 1,000 mg Tablet 1,000 mg PO TID Hold Instructions: Resume on 12/21/22. Rx Instructions: with meals allopurinol 100 mg Tablet 100 mg PO BREAKFAST Rx Instructions: takes 3 tabs in the morning allopurinol 100 mg Tablet 100 mg PO DINNER Rx Instructions: takes 2 tabs in the evening. [facility] [facility] [Primary Care Provider] - Disposition Disposition: Acute Care Hospital [facility]
[2022-12-20] MEDS: 0.9% Normal Saline 1,000 ML 150 ML IV ×2 (16:30→18:30)
[2022-12-20] MEDS: Ondansetron 4 MG/2 ML Vial IV (16:38)
[2022-12-20 16:43] VITALS: BP 106/76; PULSE 68; RESP 18; TEMP 36.8
[2022-12-20 16:45] LABS: Absolute Lymphocyte Count 2.66 X10^3/uL (0.83-4.51); Absolute Neutrophil Count 20.2 X10^3/uL (2.0-7.7); Basophil# 0.07 X10^3/uL; Basophil% 0.3 % (0-1); Eosinophil# 0.08 X10^3/uL; Eosinophils% 0.3 % (0-5); Hemoglobin 16.3 g/dL (13.0-16.5); Lymphocyte # 2.66 X10^3/ul (0.83-4.51); Lymphocyte % 10.7 % (19-41); Mean Corp Hgb Conc 35.4 g/dL (32-36); Mean Corpuscular Hgb 32.1 pg (27.0-32.0); Mean Corpuscular Volume 90.6 fL (80-94); Mean Platelet Vol. 9.8 fl (6.2-12.0); Monocyte# 1.54 X10^3/uL; Monocyte% 6.2 % (0-10); NRBC Flagged by Analyzer 0 % (0-5); Neutrophil # 20.15 X10^3/uL (2.7-7.7); Neutrophil % 81.4 % (47-70); POSITIVE DIFFERENTIAL YES; Platelet Count 548 K/mm3 (150-450); RBC Distribution Width CV 12.7 % (11.6-14.6); RBC Distribution Width SD 42.1 fl (35.1-43.9); Red Blood Count 5.08 M/mm3 (4.6-6.2); White Blood Count 24.8 K/mm3 (4.4-11.0)
[2022-12-20 16:47] LABS: Differential Indicated SCAN CRITERIA MET
[2022-12-20 17:15] LABS: AST(SGOT) 21 U/L (15-37); Alanine Aminotransfer ALT/SGPT 61 U/L (16-61); Albumin, Serum 3.5 g/dL (3.2-5.0); Alkaline Phosphatase 57 U/L (45-117); Anion Gap 9 (5-15); BUN 51 mg/dL (7-18); BUN/Creat Ratio 40.8 RATIO (10-20); CRP < 2.90 mg/L (0.0-3.0); Calcium,Total 10.2 mg/dL (8.5-10.1); Chloride 100 mmol/L (98-107); Creatinine, Serum 1.25 mg/dL (0.70-1.30); EST Glomerular Filtration Rate 62 mL/min (>60); Est Glom Filt Rate - Afr Amer 75 mL/min (>60); Estimated Creatinine Clearance 60.83 ml/min; Globulin 3.5 g/dL (2.2-4.2); Glucose 172 mg/dL (74-106); Lactic Acid 2.4 mmol/L (0.4-1.9); Potassium 4.6 mmol/L (3.5-5.1); Sodium Level 128 mmol/L (136-145)
[2022-12-20 17:28] LABS: Anisocytosis RARE; Macrocytosis RARE; Platelet Estimate MOD INC (ADEQ); Red Cell Morphology N CHROM NORMAL (NORM C&C)
[2022-12-20 17:29] LABS: Erythrocyte Sedimentation Rate 7 mm/hr (0-20)
[2022-12-20 18:55] LABS: Procalcitonin 0.11 ng/mL (0.00-0.09)
[2022-12-20 19:57] VITALS: BP 122/86; PULSE 70; RESP 18; TEMP 36.8; O2SAT 98
--- NOTE | 2022-12-20 20:28 | NURSING ---
[facility] AND HAD TO LEAVE A VM WITH HIS INFO.
[2022-12-20 20:31] VITALS: BP 111/86; PULSE 69; RESP 18; TEMP 36.8; O2SAT 99
[2022-12-20 20:32] LABS: Reflex Lactate? Y
--- NOTE | 2022-12-20 20:35 | HP.PCM.HOS_ITS ---
HPI - General General Date of Admission: 12/20/22 Date of Service: 12/20/22 Chief Complaint: Malaise/elevated white blood cell count HPI Narrative CRISTI SEGOVIA, is a 67 M who presented to the emergency department [facility] on 12/20/2022 with a chief complaint of malaise and elevated white count. Patient was seen here last week and had an injection into his lumbar spine for a herniated nucleus pulposus at L2-L3. He was discharged and feeling well on 12/14/2022. Patient reports that he was feeling pretty well for couple days and then on Monday he began to feel weak and tired. He reported that he noted his blood sugars have been higher than normal for him and complained of some nausea without vomiting and generalized weakness. The patient reported to the emergency department on 12/18/2022 with the symptoms. He was found to have a leukocytosis at that time but a differential was not obtained. Work-up was overall unremarkable other than some mild dehydration and he was discharged home with no change in his medications. He represented today as his symptoms are persistent. He did see his primary care physician [facility] and a CBC was obtained. He had an ongoing elevated white count and his primary care physician was concerned and sent him to the emergency department. He has been able to work the last 2 days but his oral intake has been poor given his intermittent nausea. He continues to feel weak and significantly fatigued. He denies any fever or chills, nasal drainage, cough, shortness of breath, vomiting, diarrhea, melena, hematochezia, or tingling, numbness, weakness. His temperature on presentation was 96.5, heart rate 96, blood pressure 113/84, respiratory rate 18 and oxygen saturation was 98 to 99% on room air. CBC C did show an ongoing leukocytosis with a white count of 24.8 and a thrombocytosis at 548,000. He did have a significant left shift with an 81.4% neutrophilia. Chemistry panel was obtained and his sodium was 128 which is slightly below baseline. Serum bicarb was 19 with normal chloride level and his BUN was 51 with a serum creatinine of 1.25. Serum glucose was 172. Calcium was 10.2. Bilirubin was 1.2. Liver functions are normal. He is ESR and CRP are both normal. Procalcitonin was slightly elevated at 0.11. He had chest x-ray done 2 days ago which was unremarkable for any acute findings. UA was also done on the second when he presented and was unremarkable for any signs of infection. The patient also denies any dysuria. A lumbar spine MRI was obtained today given his recent injection to rule out any epidural abscess and he was found to have degenerative changes and postoperative changes with disc herniations, canal stenosis, and foraminal narrowing. There was a neuroma versus extruded fragment in the left inferior area of L2-L3 but no abscess or fluid collection. Incidentally, he was also found to have moderate hydronephrosis. Blood cultures were obtained in the emergency department and he was given IV fluids and started on vancomycin and Zosyn. [facility] Medical History DDD (degenerative disc disease) Degenerative arthritis of hip Diabetes Gout HTN (hypertension) Obesity (BMI 30.0-34.9) Home Medications allopurinol 100 mg tablet 100 mg PO BREAKFAST gout 12/10/22 [History Last Taken Unknown] allopurinol 100 mg tablet 100 mg PO DINNER gout 12/10/22 [History Last Taken Unknown] hydrochlorothiazide 12.5 mg capsule 12.5 mg PO DAILY diuretic 12/10/22 [History Last Taken Unknown] metformin 1,000 mg tablet 1,000 mg PO TID diabetes 12/10/22 [History Last Taken Unknown] Allergy/AdvReac Type Severity Reaction Status Date / Time No Known Allergies Allergy Verified 12/20/22 16:02 Family History Mother Rheumatoid arthritis Father Diabetes Surgical History History of appendectomy History of tonsillectomy and adenoidectomy Social History (Updated 12/20/22 @ 21:[address] 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 Smoking Status: Never smoker alcohol intake: current alcohol intake frequency: holidays/special occasions only substance use type: does not use what type of physical activity do you participate in: none Vital Signs Vital Signs Vital Signs: 12/20/22 16:02 12/20/22 16:42 12/20/22 16:43 Temperature 96.3 F L 98.2 F Temperature Source Temporal Oral Pulse Rate 87 68 Respiratory Rate 18 18 Respiratory Effort Normal Non-Labored Blood Pressure 119/91 H 106/76 Blood Pressure Mean 100 86 Pulse Ox 99 Oxygen Delivery Method Room Air Room Air 12/20/22 19:57 Temperature 98.3 F Temperature Source Oral Pulse Rate 70 Respiratory Rate 18 Respiratory Effort Blood Pressure 122/86 H Blood Pressure Mean 98 Pulse Ox 98 Oxygen Delivery Method Room Air Weight Weight: 95.254 kg Body Mass Index (BMI) 30.1 Physical Exam Const alert, oriented x3, no apparent distress and well nourished Constitutional Narrative: Obese, ill-appearing, upper middle-aged, white male, sitting up in bed, does not appear toxic however does appear ill sick General Appearance: cooperative HEENT normocephalic, head/scalp atraumatic and hearing grossly normal bilaterally HEENT Narrative: Mucous membranes are slightly dry, Mallampati 3, no thrush Eyes PERRL, EOMs intact bilaterally and conjunctivae normal Eyes Narrative: No scleral icterus Neck no lymphadenopathy, supple, no JVD and no carotid bruits Neck Narrative: Trachea is midline, no thyroid enlargement Resp normal respiratory effort, no retractions, no use of accessory muscles and clear to auscultation bilaterally Auscultation: Negative for crackles, rhonchi or wheezes Cardio regular rate, regular rhythm, S1 normal heart sound, S2 normal heart sound, no murmurs, no rub, no gallops and no clicks GI normal to inspection, nondistended, normoactive bowel sounds and soft to palpation GI Narrative: Mild tenderness at distal bilateral abdomen in both quadrants Extremity no clubbing, cyanosis or edema Extremity Narrative: 2+ pedal pulses, cap refill is good Skin no rashes or lesions noted, no wounds, No skin turgor normal, no jaundice, no pe techiae and no mottling Neuro oriented x3, CN's II-XII intact bilaterally, moves all extremities and no focal motor deficits Speech: speech normal Motor Exam: strength 5/5 throughout Psych affect normal Psych Narrative: Very pleasant, eye contact is good, appropriately interactive Results Lab / Micro Data Result Diagrams: 12/20/22 16:24 12/20/22 16:24 Labs: Laboratory Results - last 24 hr 12/20/22 16:24: WBC 24.8 H, RBC 5.08, Hgb 16.3, Hct 46.0, MCV 90.6, MCH 32.1 H, MCHC 35.4, RDW Std Deviation 42.1, RDW Coeff of Micaela 12.7, Plt Count 548 H, MPV 9.8, Immature Gran % (Auto) 1.100 H, Neut % (Auto) 81.4 H, Lymph % (Auto) 10.7 L , [place] % (Auto) 6.2, Eos % (Auto) 0.3, Baso % (Auto) 0.3, Absolute Neuts (auto) 20.2 H, Absolute Lymphs (auto) 2.66, Nucleated RBC % 0, Differential Comment SEE COMMENT, Diff Path Review Aicha olsen, Platelet Estimate MOD INC, RBC Morphology N CHROM, Anisocytosis RARE, Macrocytosis RARE, ESR 7 12/20/22 16:24: Sodium 128 L, Potassium 4.6, Chloride 100, Carbon Dioxide 19.0 L , Anion Gap 9, BUN 51 H, Creatinine 1.25, Estim Creat Clear Calc 60.83, Est GFR (MDRD) Af Amer 75, Est GFR (MDRD) Non-Af 62, BUN/Creatinine Ratio 40.8 H, Glucose 172 H, Calcium 10.2 H, Total Bilirubin 1.20 H, AST 21, ALT 61, Alkaline Phosphatase 57, C-React Prot Ext Range < 2.90, Total Protein 7.0, Albumin 3.5, Globulin 3.5, Albumin/Globulin Ratio 1.0 12/20/22 16:24: Lactic Acid 2.4 H* 12/20/22 18:13: Procalcitonin 0.11 H Radiology Impression Lumbar Spine MRI 12/20/22 16:11 IMPRESSION: Degenerative and postoperative change with disc herniations, canal stenosis, and foraminal narrowing. There is neuroma versus extruded fragment on the left inferior to L2-3. No abscess or fluid collection. Electronically Signed: Aashish Godfrey MD at 19:04 EDT , Assessment & Plan Assessment/Plan (1) Hyperglycemia due to diabetes mellitus: (2) Acute dehydration: (3) Leukocytosis: (4) Lactic acidosis: (5) Elevated procalcitonin: (6) Thrombocytosis: (7) Hyponatremia: (8) Hypercalcemia: (9) Hyperbilirubinemia: (10) Hydronephrosis, right: PLAN: Plan Leukocytosis/malaise/generalized weakness -Etiology is unclear at this time -Chest x-ray is unremarkable -UA was unremarkable 2 days ago however patient with new hydronephrosis on the right and we will therefore recheck a UA at this time--> currently pending -Check COVID-19 rapid -Blood cultures were obtained -Vancomycin and Zosyn initiated in the emergency department -We will continue -Pro-Johnnie was mildly elevated ---> Leukocytosis could be related to his recent epidural injection however with associated symptoms I suspect something else is going on as well Dehydration -Continue IV fluids at 100 cc/h -Repeat lab in a.m. -Hold home hydrochlorothiazide Hyponatremia -Likely related to the above -IV fluids -Pursue further work-up if this worsens or does not improve Hyperbilirubinemia -Trending down from 12/18/2022 -Likely related to the above etiology -Continue to monitor with repeat liver function in a.m. Lactic acidosis -Could be related to dehydration along with use of metformin -Cycle lactate -Doubt sepsis related -Hold metformin -Hydrate Hypercalcemia -May be related to dehydration but also could be related to HCTZ use due to increased renal tubular absorption of calcium -Hold HCTZ and consider discontinuing with alternative medication at discharge Right hydronephrosis -This appears to be new when compared to his previous MRI -Check CT of the abdomen and pelvis -Check UA -We will likely need consult to urology depending on findings on imaging above Thrombocytosis -Suspect reactive and related to acute process -Antibiotics as above -Repeat CBC in a.m. Hyperglycemia with DM-2 -Patient reports blood sugars have been higher than typical -Hold metformin -SSI -Elevation as of recently is likely related to acute process and or epidural steroid injection -Accu-Cheks as ordered History of gout -Continue home allopurinol L2-L3 HNP -Recent epidural steroid injection on 12/13/2022 -Was seen by both Dr. Guzmán and Dr. Heredia while hospitalized -Plan is to follow-up as an outpatient at the [facility] for any ongoing issues -Overall improved DVT prophylaxis -Subcu Lovenox CODE STATUS -Full code Charges/Coding Visit Charges Inpatient E&M: 72799 Init Hosp L3
--- NOTE | 2022-12-20 21:28 | CT_ITS ---
STUDY: CT ABDOMEN AND PELVIS WITHOUT CONTRAST REASON FOR EXAM: Male, 67 years old. Hydronephrosis RADIATION DOSAGE (If Supplied By Facility): CTDIvol = ( 19.61 ) mGy, DLP = ( 1068.21 ) mGycm TECHNIQUE: Transaxial images were obtained from the dome of the diaphragm to the symphysis pubis without oral contrast, and without intravenous contrast. Sagittal and coronal images were reconstructed. Individualized dose optimization techniques were used for this CT. COMPARISON: MRI lumbar spine. FINDINGS: The visualized lung bases are unremarkable. There are coronary artery calcifications. Normal liver. Normal gallbladder and extrahepatic biliary system. Normal spleen. Normal pancreas. Normal bilateral adrenal glands. There is moderate right hydronephrosis. The right ureter is dilated to the pelvis. There is a 0.9 cm right ureterovesical junction stone. There is 0.2 cm stone in the lower pole of the left kidney. Normal visualized stomach. Normal small intestine. Normal colon. The appendix is visualized and appears normal. There is diffuse atherosclerotic calcification of the abdominal aorta, without a demonstrated aneurysm. Normal inferior vena cava. Normal retroperitoneum. Normal urinary bladder. There are prostatic calcifications. There is no free fluid in the abdomen or pelvis. Normal abdominal wall. There are diffuse degenerative changes of the visualized lumbar spine. CT/Abdomen/Pelvis without Cont IMPRESSION: Right ureterovesical junction stone with hydronephrosis. Left renal stone. Electronically Signed: Aashish Godfrey MD at 22:04 EDT ,
[2022-12-20 21:37] LABS: Lactic Acid 1.7 mmol/L (0.4-1.9)
[2022-12-20 21:38] VITALS: BMI 30.1
--- NOTE | 2022-12-20 21:44 | PCM.HOSP.N ---
Hospitalist Note CT of the abdomen and pelvis was completed and a large distal ureteral stone was identified on the right side at the junction of the bladder and right ureter. Patient was placed on Flomax and consult to urology-Dr. Neville. This may be the etiology of his symptoms.
[2022-12-20 22:01] VITALS: BP 106/68; PULSE 64; RESP 18; TEMP 36.8; O2SAT 98
[2022-12-20] MEDS: Lactated Ringers 1,000 ML 100 ML IV (22:32)
[2022-12-20] MEDS: Tamsulosin HCl 0.4 MG Capsule PO (22:32)
[2022-12-20] MEDS: 0.9% Saline Lock 10 ML Syringe IV (22:55)
[2022-12-20 23:00] LABS: Bedside Glucose 190 mg/dL (74-106)
--- NOTE | 2022-12-20 23:27 | PCM.RX.CS ---
Consult Pharmacy has been consulted to manage selected antiobiotic: Vancomycin Type of Consult: New start Prior Doses of Antibiotics Received/Current Regimen: Medications Vancomycin HCl 1,250 mg/ (Sodium Chloride) 275 mls @ 167 mls/hr IV Q12H ELVI Discontinued Medications Vancomycin HCl 2,000 mg/ (Sodium Chloride) 540 mls @ 250 mls/hr IV X1 ONE Stop: 12/20/22 18:34 Last Admin: 12/20/22 20:43 Dose: Infused Labs: Sodium 128 mmol/L (136-145) L 12/20/22 16:24 Potassium 4.6 mmol/L (3.5-5.1) 12/20/22 16:24 Chloride 100 mmol/L (98-107) 12/20/22 16:24 Carbon Dioxide 19.0 mmol/L (21.0-32.0) L 12/20/22 16:24 Anion Gap 9 (5-15) 12/20/22 16:24 BUN 51 mg/dL (7-18) H 12/20/22 16:24 Creatinine 1.25 mg/dL (0.70-1.30) 12/20/22 16:24 Est GFR (MDRD) Af Amer 75 mL/min (>60) 12/20/22 16:24 Est GFR (MDRD) Non-Af 62 mL/min (>60) 12/20/22 16:24 BUN/Creatinine Ratio 40.8 RATIO (10-20) H 12/20/22 16:24 Glucose 172 mg/dL (74-106) H 12/20/22 16:24 Weight used for dosin.3 kg Estimated Creatinine Clearance: 68 Goal Trough: 15-20 mcg/mL Pharmacy Plan for Drug Dosing: Pharmacy Service will continue to monitor and adjust dosing as required. Follow-Up Labs: Trough Vancomycin Labs to be done on [date and time ordered]: 12/22/22 @0600
[2022-12-21 03:32] LABS: Bacteria 0 SEEN /hpf (None Seen); Mucous, Urine 0 SEEN /hpf (<or=2+); Red Blood Cells-Urine 0 SEEN /hpf (0-5); Squamous Epithelial Cells - UA 0 SEEN /hpf (0-5)
[2022-12-21 03:37] LABS: Color, Urine Yellow (Yellow); Glucose, Dipstick Normal (Normal); Ketone-Dipstick 5 mg/dl (Negative); Leukocyte Esterase-Dipstick Negative /ul (Negative); Nitrite-Dipstick Negative (Negative); Occult Blood-Urine Negative /ul (Negative); Protein-Dipstick 15 mg/dl (Negative); Urine Bilirubin Dipstick Negative (Negative); Urine Clarity Clear (Clear); Urine Urobilinogen Normal (Normal)
[2022-12-21 03:44] LABS: White Blood Cells 0-5 SEEN /hpf (0-5)
[2022-12-21 06:09] LABS: Absolute Lymphocyte Count 1.92 X10^3/uL (0.83-4.51); Absolute Neutrophil Count 15.8 X10^3/uL (2.0-7.7); Basophil# 0.03 X10^3/uL; Basophil% 0.2 % (0-1); Eosinophil# 0.07 X10^3/uL; Eosinophils% 0.4 % (0-5); Hematocrit 37.1 % (40-54); Hemoglobin 13.1 g/dL (13.0-16.5); Lymphocyte # 1.92 X10^3/ul (0.83-4.51); Lymphocyte % 9.9 % (19-41); Mean Corp Hgb Conc 35.3 g/dL (32-36); Mean Corpuscular Hgb 32.8 pg (27.0-32.0); Mean Corpuscular Volume 92.8 fL (80-94); Mean Platelet Vol. 9.4 fl (6.2-12.0); Monocyte# 1.51 X10^3/uL; Monocyte% 7.8 % (0-10); NRBC Flagged by Analyzer 0 % (0-5); Neutrophil # 15.75 X10^3/uL (2.7-7.7); POSITIVE DIFFERENTIAL YES; Platelet Count 367 K/mm3 (150-450); RBC Distribution Width CV 12.6 % (11.6-14.6); RBC Distribution Width SD 43.5 fl (35.1-43.9); White Blood Count 19.4 K/mm3 (4.4-11.0)
[2022-12-21 06:11] LABS: Differential Indicated SCAN CRITERIA MET
[2022-12-21 06:12] VITALS: BP 111/60; PULSE 59; RESP 18; TEMP 36.5; O2SAT 98
[2022-12-21] MEDS: Insulin Lispro 100 UNIT/ML INSULN.PEN SC ×3 (06:22→17:05)
[2022-12-21] MEDS: Lactated Ringers 1,000 ML 100 ML IV ×2 (06:22→20:16)
[2022-12-21] MEDS: 0.9% Saline Lock 10 ML Syringe IV (06:22)
[2022-12-21 06:52] LABS: ALB/GLOB Ratio 1.1 RATIO (0.9-2.4); AST(SGOT) 16 U/L (15-37); Alanine Aminotransfer ALT/SGPT 45 U/L (16-61); Albumin, Serum 2.8 g/dL (3.2-5.0); Alkaline Phosphatase 42 U/L (45-117); Anion Gap 9 (5-15); BUN 39 mg/dL (7-18); BUN/Creat Ratio 36.8 RATIO (10-20); Calcium,Total 8.4 mg/dL (8.5-10.1); Chloride 103 mmol/L (98-107); Creatinine, Serum 1.06 mg/dL (0.70-1.30); EST Glomerular Filtration Rate 74 mL/min (>60); Est Glom Filt Rate - Afr Amer 90 mL/min (>60); Estimated Creatinine Clearance 71.74 ml/min; Globulin 2.6 g/dL (2.2-4.2); Glucose 172 mg/dL (74-106); Magnesium 2.4 mg/dL (1.6-2.6); Potassium 4.7 mmol/L (3.5-5.1); Protein, Total 5.4 g/dL (6.4-8.2); Sodium Level 132 mmol/L (136-145); Thyroid Stim Hormone (TSH) 0.56 uIU/mL (0.358-3.74)
[2022-12-21 07:00] LABS: Bedside Glucose 164 mg/dL (74-106)
--- NOTE | 2022-12-21 07:16 | PN.HOSP_ITS ---
Reason for Visit Reason for Visit: Diagnoses Elevated white blood cell count, unspecified (12/20/22) Thrombocytosis, unspecified (12/20/22) Type 2 diabetes mellitus with hyperglycemia (12/20/22) Other disorders of bilirubin metabolism (12/20/22) Hypercalcemia (12/20/22) Dehydration (12/20/22) Hypo-osmolality and hyponatremia (12/20/22) Acidosis, unspecified (12/20/22) Unspecified hydronephrosis (12/20/22) Other specified abnormal findings of blood chemistry (12/20/22) Subjective Subjective Patient is a 67-year-old gentleman who was sent sent to the ED from the [place] with abnormal labs. Was found to have leukocytosis. Patient had apparently undergone epidural steroid injection by Dr. Perez a week prior to his admission. MRI did not show any evidence of discitis or paraspinal infection. Patient was however found to have Right ureterovesical junction stone with hydronephrosis. Left renal stone. Objective Data Objective Data Vital Signs: Vital Signs Temp Pulse Resp BP Pulse Ox O2 Del Method 97.7 F L 59 L 18 111/60 98 Room Air 12/21/22 06:12 12/21/22 06:12 12/21/22 06:12 12/21/22 06:12 12/21/22 06:12 12/21/22 06:12 Oxygen Delivery Method Room Air Weight: 95.254 kg Body Mass Index (BMI) 30.1 Intake & Output: Intake and Output for Last 24 Hours 12/19/22 12/20/22 12/21/22 23:59 23:59 23:59 Intake Total 2440 / 2440 1440.50 / 1440.50 Balance 2440 / 2440 1440.50 / 1440.50 Lab / Micro Data Result Diagrams: 12/21/22 05:55 12/21/22 05:55 Labs: Laboratory Results - last 24 hr 12/20/22 16:24: WBC 24.8 H, RBC 5.08, Hgb 16.3, Hct 46.0, MCV 90.6, MCH 32.1 H, MCHC 35.4, RDW Std Deviation 42.1, RDW Coeff of Micaela 12.7, Plt Count 548 H, MPV 9.8, Immature Gran % (Auto) 1.100 H, Neut % (Auto) 81.4 H, Lymph % (Auto) 10.7 L , [place] % (Auto) 6.2, Eos % (Auto) 0.3, Baso % (Auto) 0.3, Absolute Neuts (auto) 20.2 H, Absolute Lymphs (auto) 2.66, Nucleated RBC % 0, Differential Comment SEE COMMENT, Diff Path Review May foll, Platelet Estimate MOD INC, RBC Morphology N CHROM, Anisocytosis RARE, Macrocytosis RARE, ESR 7 12/20/22 16:24: Sodium 128 L, Potassium 4.6, Chloride 100, Carbon Dioxide 19.0 L , Anion Gap 9, BUN 51 H, Creatinine 1.25, Estim Creat Clear Calc 60.83, Est GFR (MDRD) Af Amer 75, Est GFR (MDRD) Non-Af 62, BUN/Creatinine Ratio 40.8 H, Gluc ose 172 H, Calcium 10.2 H, Total Bilirubin 1.20 H, AST 21, ALT 61, Alkaline Phosphatase 57, C-React Prot Ext Range < 2.90, Total Protein 7.0, Albumin 3.5, Globulin 3.5, Albumin/Globulin Ratio 1.0 12/20/22 16:24: Lactic Acid 2.4 H* 12/20/22 18:13: Procalcitonin 0.11 H 12/20/22 20:50: Lactic Acid 1.7 12/20/22 22:31: POC Glucose 190 H 12/21/22 00:00: Urine Color Yellow, Urine Clarity Clear, Urine pH 5.0, Ur Specific [place] 1.020, Urine Protein 15 H, Urine Glucose (UA) Normal, Urine Ketones 5 H, Urine Occult Blood Negative, Urine Nitrite Negative, Urine Bilirubin Negative, Urine Urobilinogen Normal, Ur Leukocyte Esterase Negative, Urine RBC 0 SEEN, Urine WBC 0-5 SEEN, Ur Squamous Epith Cells 0 SEEN, Urine B acteria 0 SEEN, Urine Mucus 0 SEEN 12/21/22 05:55: WBC 19.4 H, RBC 4.00 L, Hgb 13.1, Hct 37.1 L, MCV 92.8, MCH 32.8 H, MCHC 35.3, RDW Std Deviation 43.5, RDW Coeff of Micaela 12.6, Plt Count 367, MPV 9.4, Immature Gran % (Auto) 0.700, Neut % (Auto) 81.0 H, Lymph % (Auto) 9.9 L, [place] % (Auto) 7.8, Eos % (Auto) 0.4, Baso % (Auto) 0.2, Absolute Neuts (auto) 15.8 H, Absolute Lymphs (auto) 1.92, Nucleated RBC % 0, Diff Path Review January12/21/22 05:55: Sodium 132 L, Potassium 4.7, Chloride 103, Carbon Dioxide 20.0 L , Anion Gap 9, BUN 39 H, Creatinine 1.06, Estim Creat Clear Calc 71.74, Est GFR (MDRD) Af Amer 90, Est GFR (MDRD) Non-Af 74, BUN/Creatinine Ratio 36.8 H, Glucose 172 H, Calcium 8.4 L, Phosphorus 4.0, Magnesium 2.4, Total Bilirubin 1.40 H, AST 16, ALT 45, Alkaline Phosphatase 42 L, Total Protein 5.4 L, Albumin 2.8 L, Globulin 2.6, Albumin/Globulin Ratio 1.1, TSH 0.56 12/21/22 06:18: POC Glucose 164 H Micro: Microbiology 12/20/22 16:24 Blood Culture (Wb) - Anticubital Left Blood Culture - Preliminary 12/20/22 22:18 Nasal Secretion SARS-CoV-2 Antigen (Rapid) - Final Radiography Diagnostic Testing: Radiology Impression Lumbar Spine MRI 12/20/22 16:11 IMPRESSION: Degenerative and postoperative change with disc herniations, canal stenosis, and foraminal narrowing. There is neuroma versus extruded fragment on the left inferior to L2-3. No abscess or fluid collection. Electronically Signed: Aashish Godfrey MD at 19:04 EDT , Abdomen/Pelvis CT 12/20/22 21:28 IMPRESSION: Right ureterovesical junction stone with hydronephrosis. Left renal stone. Electronically Signed: Aashish Godfrey MD at 22:04 EDT , Physical Exam Narrative GENERAL: cooperative HEENT: Atraumatic; normocephalic EYES; Anicteric, Normal Conjunctiva NECK; supple, normal thyroid, RESPIRATORY: Diminished to auscultation CARDIOVASCULAR: Regular S1 S2, GI: soft, normoactive bowel sounds, : No Renal angle tenderness; EXTREMITIES: No edema, no clubbing, MUSCULOSKELETAL: no muscle wasting NEURO: Awake; no lateralizing signs. SKIN: No Rash PSYCH; Flat affect Assessment & Plan Assessment/Plan (1) Hydronephrosis, right: PLAN: Plan Patient is a 67-year-old gentleman who was sent sent to the ED from the [place] with abnormal labs. Was found to have leukocytosis. Patient had apparently undergone epidural steroid injection by Dr. Perez a week prior to his admission. MRI did not show any evidence of discitis or paraspinal infection. Patient was however found to have Right ureterovesical junction stone with hydronephrosis. Left renal stone. 1. Leukocytosis ? May be related to patient hydronephrosis. Patient started on broad-spectrum antibiotic therapy cultures including urine and blood sent 2. Hydronephrosis ? Secondary to right UVP stone. Plan is to transfer patient to a facility with urology availability. 3. Hyponatremia ? Secondary to patient HCTZ held monitoring with daily BMPs ordered 4. Diabetes mellitus type II -patient's oral hypoglycemics held. Placed on long acting insulin, Accu-Cheks a.c. and at bedtime and covered with sliding scale insulin 5. Thrombocytosis ? Reactive we will monitor with daily CBCs 6. Gout ? Patient is on allopurinol did continue 7. Chronic back pains secondary to L2-L3 disc herniation. Patient underwent epidural steroid injection on 12/13/[address] Perez 8. DVT prophylaxis - On enoxaparin CODE STATUS -Full code Time spent in the patient's overall evaluation,decision-making process, review of diagnostic data, adjustment of management, discussion with other providers, nursing nursing and ancillary staff involved in patient's care documentation, 55 Minutes Charges/Coding Visit Charges Inpatient E&M: 11487 [facility] Hosp L3
[2022-12-21 07:52] VITALS: O2SAT 99
[2022-12-21 08:09] VITALS: BP 109/71; PULSE 64; RESP 18; TEMP 36.6; O2SAT 99
[2022-12-21] MEDS: Allopurinol 300 MG Tablet PO (10:08)
[2022-12-21] MEDS: Enoxaparin 40 MG/0.4 ML Syringe SC (10:08)
--- NOTE | 2022-12-21 10:27 | CASEMGMT ---
Pt does not have any insurance other than the [facility] benefit, pt may transfer to any hospital.
[2022-12-21 12:55] LABS: Bedside Glucose 207 mg/dL (74-106)
--- NOTE | 2022-12-21 13:16 | PCM.DC.SUM ---
Providers Date of Admission: 12/20/22 Date of Discharge: 12/22/22 Primary Care Physician: [place] [facility] Reason For Visit: LEUKOCYTOSIS Diagnosis Discharge Diagnosis (1) Hydronephrosis, right: Status: Acute Code(s): N13.30 - Unspecified hydronephrosis Plan Patient is a 67-year-old gentleman who was sent sent to the ED from the [place] with abnormal labs. Was found to have leukocytosis. Patient had apparently undergone epidural steroid injection by Dr. Perez a week prior to his admission. MRI did not show any evidence of discitis or paraspinal infection. Patient was however found to have Right ureterovesical junction stone with hydronephrosis. Left renal stone. 1. Leukocytosis ? May be related to patient hydronephrosis. Patient started on broad-spectrum antibiotic therapy cultures including urine and blood sent 2. Hydronephrosis ? Secondary to right UVP stone. Plan is to transfer patient to a facility with urology availability. ? Patient was accepted for transfer to [facility] 3. Hyponatremia ? Secondary to patient HCTZ held monitoring with daily BMPs ordered 4. Diabetes mellitus type II -patient's oral hypoglycemics held. Placed on long acting insulin, Accu-Cheks a.c. and at bedtime and covered with sliding scale insulin 5. Thrombocytosis ? Reactive we will monitor with daily CBCs 6. Gout ? Patient is on allopurinol did continue 7. Chronic back pains secondary to L2-L3 disc herniation. Patient underwent epidural steroid injection on 12/13/[address] Perez 8. DVT prophylaxis - On enoxaparin CODE STATUS -Full code Time spent in the patient's overall evaluation,decision-making process, review of diagnostic data, adjustment of management, discussion with other providers, nursing nursing and ancillary staff involved in patient's care documentation, 35 Minutes Medications at Discharge Home Medications allopurinol 100 mg tablet 200 mg PO DINNER gout 12/10/22 allopurinol 100 mg tablet 300 mg PO BREAKFAST gout 12/10/22 hydrochlorothiazide 12.5 mg capsule 12.5 mg PO DAILY diuretic 12/10/22 metformin 1,000 mg tablet 1,000 mg PO BIDCM diabetes 12/10/22 tamsulosin 0.4 mg capsule 0.4 mg PO DAILY@1730 #0 caps 12/21/22 Hospital Course Summary of Care Provided Minutes Spent on Discharge: 35 Physical Exam Narrative GENERAL: cooperative HEENT: Atraumatic; normocephalic EYES; Anicteric, Normal Conjunctiva NECK; supple, normal thyroid, RESPIRATORY: Diminished to auscultation CARDIOVASCULAR: Regular S1 S2, GI: soft, normoactive bowel sounds, : No Renal angle tenderness; EXTREMITIES: No edema, no clubbing, MUSCULOSKELETAL: no muscle wasting NEURO: Awake; no lateralizing signs. SKIN: No Rash PSYCH; Flat affect Weight / BMI Weight Weight: 95.254 kg Body Mass Index (BMI) 30.1 ABG / Lab / Microbiology Data Result Diagrams: 12/21/22 05:55 12/21/22 05:55 Laboratory: Laboratory Results - last 24 hr 12/20/22 16:24: WBC 24.8 H, RBC 5.08, Hgb 16.3, Hct 46.0, MCV 90.6, MCH 32.1 H, MCHC 35.4, RDW Std Deviation 42.1, RDW Coeff of Micaela 12.7, Plt Count 548 H, MPV 9.8, Immature Gran % (Auto) 1.100 H, Neut % (Auto) 81.4 H, Lymph % (Auto) 10.7 L, [place] % (Auto) 6.2, Eos % (Auto) 0.3, Baso % (Auto) 0.3, Absolute Neuts (auto) 20.2 H, Absolute Lymphs (auto) 2.66, Nucleated RBC % 0, Differential Comment SEE COMMENT, Diff Path Review May foll, Platelet Estimate MOD INC, RBC Morphology N CHROM, Anisocytosis RARE, Macrocytosis RARE, ESR 7 12/20/22 16:24: Sodium 128 L, Potassium 4.6, Chloride 100, Carbon Dioxide 19.0 L, Anion Gap 9, BUN 51 H, Creatinine 1.25, Estim Creat Clear Calc 60.83, Est GFR (MDRD) Af Amer 75, Est GFR (MDRD) Non-Af 62, BUN/Creatinine Ratio 40.8 H, Glucose 172 H, Calcium 10.2 H, Total Bilirubin 1.20 H, AST 21, ALT 61, Alkaline Phosphatase 57, C-React Prot Ext Range < 2.90, Total Protein 7.0, Albumin 3.5, Globulin 3.5, Albumin/Globulin Ratio 1.0 12/20/22 16:24: Lactic Acid 2.4 H* 12/20/22 18:13: Procalcitonin 0.11 H 12/20/22 20:50: Lactic Acid 1.7 12/20/22 22:31: POC Glucose 190 H 12/21/22 00:00: Urine Color Yellow, Urine Clarity Clear, Urine pH 5.0, Ur Specific [place] 1.020, Urine Protein 15 H, Urine Glucose (UA) Normal, Urine Ketones 5 H, Urine Occult Blood Negative, Urine Nitrite Negative, Urine Bilirubin Negative, Urine Urobilinogen Normal, Ur Leukocyte Esterase Negative, Urine RBC 0 SEEN, Urine WBC 0-5 SEEN, Ur Squamous Epith Cells 0 SEEN, Urine Bacteria 0 SEEN, Urine Mucus 0 SEEN 12/21/22 05:55: WBC 19.4 H, RBC 4.00 L, Hgb 13.1, Hct 37.1 L, MCV 92.8, MCH 32.8 H, MCHC 35.3, RDW Std Deviation 43.5, RDW Coeff of Micaela 12.6, Plt Count 367, MPV 9.4, Immature Gran % (Auto) 0.700, Neut % (Auto) 81.0 H, Lymph % (Auto) 9.9 L, [place] % (Auto) 7.8, Eos % (Auto) 0.4, Baso % (Auto) 0.2, Absolute Neuts (auto) 15.8 H, Absolute Lymphs (auto) 1.92, Nucleated RBC % 0, Diff Path Review January12/21/22 05:55: Sodium 132 L, Potassium 4.7, Chloride 103, Carbon Dioxide 20.0 L, Anion Gap 9, BUN 39 H, Creatinine 1.06, Estim Creat Clear Calc 71.74, Est GFR (MDRD) Af Amer 90, Est GFR (MDRD) Non-Af 74, BUN/Creatinine Ratio 36.8 H, Glucose 172 H, Calcium 8.4 L, Phosphorus 4.0, Magnesium 2.4, Total Bilirubin 1.40 H, AST 16, ALT 45, Alkaline Phosphatase 42 L, Total Protein 5.4 L, Albumin 2.8 L, Globulin 2.6, Albumin/Globulin Ratio 1.1, TSH 0.56 12/21/22 06:18: POC Glucose 164 H 12/21/22 11:42: POC Glucose 207 H Microbiology: Microbiology 12/20/22 16:24 Blood Culture (Wb) - Anticubital Left Blood Culture - Preliminary 12/20/22 22:18 Nasal Secretion SARS-CoV-2 Antigen (Rapid) - Final Radiography Diagnostic Testing: Radiology Impression Lumbar Spine MRI 12/20/22 16:11 IMPRESSION: Degenerative and postoperative change with disc herniations, canal stenosis, and foraminal narrowing. There is neuroma versus extruded fragment on the left inferior to L2-3. No abscess or fluid collection. Electronically Signed: Aashish Godfrey MD at 19:04 EDT , Abdomen/Pelvis CT 12/20/22 21:28 IMPRESSION: Right ureterovesical junction stone with hydronephrosis. Left renal stone. Electronically Signed: Aashish Godfrey MD at 22:04 EDT , D/C Instructions Discharge Diet: 1800 Calorie Control Diet Discharge Activity: Return to Normal Activity Call your doctor if you observe: Fever of 101 or Higher, Shortness of breath, Fainting spells and Chest pain Meaningful Use Info Meaningful Use Diagnoses (Choose all that apply): None applicable Discharge Plan Admission Admit Date/Time: 12/20/22 20:27 Attending Provider: Kofi Hidalgo Primary Care Provider: [facility],[place] Consulting Providers: Elizabeth Capone Discharge Orders/Prescriptions Prescriptions: New tamsulosin 0.4 mg Capsule 0.4 mg PO DAILY@1730 Qty: 0 0RF Continued hydrochlorothiazide 12.5 mg Capsule 12.5 mg PO DAILY Hold Instructions: Resume on 12/21/22. Rx Instructions: takes with linsiniprinl 10 mg po metformin 1,000 mg Tablet 1,000 mg PO BIDCM Hold Instructions: Resume on 12/21/22. Rx Instructions: with meals allopurinol 100 mg Tablet 300 mg PO BREAKFAST Rx Instructions: takes 3 tabs in the morning allopurinol 100 mg Tablet 200 mg PO DINNER Rx Instructions: takes 2 tabs in the evening. Referrals / Follow Up: [facility] [Primary Care Provider] - Disposition Disposition (needs filled in before D/C Order can be placed): Acute Care Hospital Charges/Coding Visit Charges Inpatient E&M: 37115 Disch Hosp >30min
[2022-12-21 14:37] VITALS: BP 119/60; PULSE 65; RESP 18; TEMP 36.8; O2SAT 96
[2022-12-21] MEDS: Tamsulosin HCl 0.4 MG Capsule PO (17:04)
[2022-12-21] MEDS: Acetaminophen 325 MG Tablet 650 MG PO ×2 (17:04→22:28)
[2022-12-21] MEDS: Allopurinol 100 MG Tablet 200 MG PO (17:04)
[2022-12-21 17:36] LABS: Bedside Glucose 164 mg/dL (74-106)
[2022-12-21] MEDS: Pantoprazole Sodium 40 MG Tablet PO (19:20)
[2022-12-21 20:00] VITALS: BP 123/76; PULSE 66; RESP 15; TEMP 37; O2SAT 100
[2022-12-21] MEDS: MELATONIN 3 MG TABLET PO (22:28)
[2022-12-21 23:35] LABS: Bedside Glucose 206 mg/dL (74-106)
--- NOTE | 2022-12-22 00:15 | NURSING ---
report called to danny at [facility]. transport is expected between [id number]
[2022-12-22 02:00] VITALS: BP 131/68; PULSE 59; RESP 14; TEMP 36.9; O2SAT 97
[2022-12-22] MEDS: Acetaminophen 325 MG Tablet 650 MG PO (04:00)
[2022-12-22 08:51] LABS: Pathologist Review Reviewed
[2022-12-22 08:54] LABS: Pathologist Review Reviewed
== END 2022-12-22 04:20 | disposition short-term general hospital (02) | DRG 694 ==
LOC: ED 20:30 → MS3 20:37
PROVIDERS: Admitting Provider Internal Medicine; Emergency Provider Emergency Medicine; Visit Provider Internal Medicine
DX: N13.2 Hydronephrosis with renal and ureteral calculous obstruction (principal); E87.1 Hypo-osmolality and hyponatremia; E87.20 Acidosis, unspecified; E11.65 Type 2 diabetes mellitus with hyperglycemia; E80.6 Other disorders of bilirubin metabolism; E83.52 Hypercalcemia; E86.0 Dehydration; I10 Essential (primary) hypertension; M10.9 Gout, unspecified; M51.26 Other intervertebral disc displacement, lumbar region; G89.29 Other chronic pain; Z20.822 Contact with and (suspected) exposure to COVID-19; Z79.84 Long term (current) use of oral hypoglycemic drugs; Z79.899 Other long term (current) drug therapy
CPT/HCPCS: 36415; 72158; 74176; 80053; 81001; 82962; 83605; 83735; 84100; 84145; 84443; 85025; 85652; 86140; 87040; 87426; 94668; 99252; 99283; A9575; J7030; J7040; J7050; J7120; A4216; G0463; J2405

== ENCOUNTER 2023-02-14 10:19 | Emergency (ER) | payer OTHER, SELFPAY ==
[2023-02-14 10:20] VITALS: BP 151/104; PULSE 71; RESP 18; TEMP 35.8; O2SAT 96; BMI 30.9
--- NOTE | 2023-02-14 10:55 | ED.VIS.BACK ---
HPI History of Present Illness Chief Complaint: Lower Extremity Injury Detail of Chief Complaint: Pain in back and left leg Informant: patient Narrative Narrative: Patient presents with pain in his low back on the left side and pain that radiates into his left hip and down the anterior aspect of the thigh to about the knee. Patient states that he was admitted about a month ago for back pain and had an MRI that showed some herniated disc. Patient was seen by pain management and had a epidural injection about a month ago. Patient was seen by back surgeon Dr. Guzmán as well. [facility] so that [facility] went to the [place] for pain management. He is currently on gabapentin. This morning he rolled out of bed and felt more discomfort in his back and pain down into his hip and left leg. He denies loss of bowel or bladder function. He denies weakness to the extremity. He is able to walk with a cane. Patient rates his pain an 8 out of 10. Patient tells me that the back surgeon told him that he could not rule out that he would need surgical decompression of his herniated disc at some point. Prior similar symptoms: Yes PFSH PFSH Medical History DDD (degenerative disc disease) Degenerative arthritis of hip Diabetes Gout HTN (hypertension) Obesity (BMI 30.0-34.9) Home Medications allopurinol 100 mg tablet 200 mg PO DINNER gout 12/10/22 [History Last Taken 12/19/22] allopurinol 100 mg tablet 300 mg PO BREAKFAST gout 12/10/22 [History Last Taken 12/20/22] hydrochlorothiazide 12.5 mg capsule 12.5 mg PO DAILY diuretic 12/10/22 [History Last Taken 12/20/22] metformin 1,000 mg tablet 1,000 mg PO BIDCM diabetes 12/10/22 [History Last Taken 12/20/22] tamsulosin 0.4 mg capsule 0.4 mg PO DAILY@1730 #0 caps 12/21/22 [Rx Last Taken Unknown] tramadol 50 mg tablet ea PO 12/28/22 [History Last Taken Unknown] cyclobenzaprine 10 mg tablet 10 mg PO TID PRN Muscle Spasm #20 TABLETS 02/14/23 [Rx Last Taken Unknown] hydrocodone-acetaminophen 5-325mg 5mg-325mg 1 tab PO Q4H PRN PRN Pain 2 days #15 TABLETS 02/14/23 [Rx Last Taken Unknown] methylprednisolone 4 mg tablets in a dose pack (Medrol (Ty)) 4 mg PO DAILY #21 tabs 02/14/23 [Rx Last Taken Unknown] Allergy/AdvReac Type Severity Reaction Status Date / Time No Known Allergies Allergy Verified 02/14/23 10:22 Family History Mother Rheumatoid arthritis Father Diabetes Surgical History History of appendectomy History of tonsillectomy and adenoidectomy Social History household members: none and other details: current occupational status: employed 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 Smoking Status: Never smoker alcohol intake: current alcohol intake frequency: holidays/special occasions only substance use type: does not use what type of physical activity do you participate in: none ROS ROS ED Review of Systems ROS Unobtainable: other Constitutional Constitutional ED: Reports lethargy; Denies chills, fever(s), sweats or weight loss Eyes Eyes: Denies blurry vision, change in vision or diplopia ENT ENT ED: Denies rhinorrhea or sore throat Cardiovascular Cardiovascular: Denies chest pain, orthopnea or racing heartbeat Respiratory/Chest Respiratory/Chest: Denies cough, dyspnea, dyspnea on exertion, orthopnea or sputum Gastrointestinal Gastrointestinal: Denies abdominal pain, diarrhea, nausea or vomiting Genitourinary Genitourinary ED: Denies dysuria, hematuria or urinary frequency Musculoskeletal Musculoskeletal: Reports back pain; Denies arthralgias, myalgias or neck pain Integumentary Denies abscess, Abrasions or rash Neurologic Neurologic: Denies headache(s) or weakness Psychiatric Psychiatric: Denies anxiety, depression or suicidal thoughts Endocrine Endocrinology: Denies polydipsia, polyphagia or polyuria Hematologic/Lymphatic Hematologic/Lymphatic: Denies easy bleeding, easy bruising or lymphadenopathy Allergic/Immunologic Allergic/Immunologic ED: Denies mouth swelling, tongue swelling or urticaria EXAM Physical Exam Const Vital Signs: 02/14/23 10:20 Temperature 96.5 F L Temperature Source Temporal Pulse Rate 71 Respiratory Rate 18 Blood Pressure 151/104 H Blood Pressure Mean 119 Pulse Ox 96 Oxygen Delivery Method Room Air Positive well nourished and well developed General Appearance ED: well developed and NAD HEENT Reports TM's clear and moist mucous membranes normocephalic and atraumatic; Negative for trauma or tenderness Tympanic Membrane ED: Yes TM's clear Eyes PERRL and EOMs intact bilaterally General Eye ED: Negative for pale conjunctiva or scleral icterus Neck no lymphadenopathy, supple and no JVD General: Negative for tenderness Chest Wall inspection of chest normal and palpation of chest normal Chest: Negative for tenderness Resp normal respiratory effort and clear to auscultation bilaterally Effort and Inspection: Negative for respiratory distress or pain with movement Auscultation: Negative for rhonchi, wheezes or diminished lung sounds Cardio regular rate, regular rhythm, S1 normal heart sound, S2 normal heart sound and no murmurs Peripheral Pulses: pulses 2+ throughout GI normal to inspection, nondistended, normoactive bowel sounds, soft to palpation, non-tender, non-distended and no masses Back/Spine no CVA tenderness and no thoracic nor lumbar tenderness Back/Spine Narrative: No significant tenderness over the lumbar spine on exam. There is no erythema or warmth noted. No bony step-offs. Patient has negative straight leg raises. Deep tendon reflexes are plus 2 out of 4 bilaterally at the patella and Achilles. Patient has normal L5 extension bilaterally. Patient has normal sensation to light touch. Extremity normal to inspection General Extremety ED: Negative for edema General Extremity: Negative for edema Neuro oriented x3, CN's II-XII intact bilaterally, no sensory deficits noted and gait normal Sensorium / Orientation: awake, alert, oriented to person, oriented to place and oriented to time Motor Exam: strength 5/5 throughout and strength abnormal Psych mental status grossly normal Skin no rashes or lesions noted and no wounds MDM MDM MDM Narrative Medical decision making narrative: Patient presents with back pain that is been chronic. He has been seen by pain management as well as back surgeon. No new injury or trauma. No red flag symptoms or signs of cauda equina. Patient will be medicated with Dilaudid and Zofran. I will start patient on Medrol Dosepak and given a prescription for [place] and Flexeril. 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 Also will refer back to his back surgeon if symptoms persist or worsen. Patient advised on red flag symptoms of cauda equina. I did review patient's prior MRI dated 12/20/2022. This did show multiple disc herniations and degenerative changes with canal stenosis and foraminal narrowing. There is neuroma versus extruded fragment on the left inferior to L2-3. Discharge Plan Triage Chief Complaint: Lower Extremity Injury Other Complaint: Back ED Provider: Sid Taylor Dx/Rx/DC Orders Clinical Impression: Back pain, Lumbar radiculopathy Instructions: ED Back Pain (Acute or Chronic), ED Sciatica Prescriptions: New hydrocodone-acetaminophen [hydrocodone-acetaminophen] 5-325 mg tablet 1 tab PO Q4H PRN PRN (Reason: Pain) 2 Days Qty: 15 0RF cyclobenzaprine [cyclobenzaprine] 10 mg tablet 10 mg PO TID PRN (Reason: Muscle Spasm) Qty: 20 0RF methylprednisolone [Medrol (Ty)] 4 mg tablets,dose pack 4 mg PO DAILY Qty: 21 0RF No Action tramadol 50 mg tablet PO Label Comments: take 1 tablet by mouth three times a day if needed for 7 days hydrochlorothiazide 12.5 mg Capsule 12.5 mg PO DAILY Hold Instructions: Resume on 12/21/22. Rx Instructions: takes with linsiniprinl 10 mg po metformin 1,000 mg Tablet 1,000 mg PO BIDCM Hold Instructions: Resume on 12/21/22. Rx Instructions: with meals allopurinol 100 mg Tablet 300 mg PO BREAKFAST Rx Instructions: takes 3 tabs in the morning allopurinol 100 mg Tablet 200 mg PO DINNER Rx Instructions: takes 2 tabs in the evening. tamsulosin 0.4 mg Capsule 0.4 mg PO DAILY@1730 Qty: 0 0RF Primary Care Provider: [facility] Referrals: Junaid Guzmán DO [Med Staff - Active Staff] - 5-7 Days [facility],[place] [Primary Care Provider] - Activity Restrictions/Additional Instructions: Follow-up with your change management as well as back surgeon. Disposition Disposition: Home, Self Care
[2023-02-14] MEDS: Ondansetron 4 MG/2 ML Vial IM (11:03)
[2023-02-14] MEDS: HYDROmorphone 1 MG/ML Syringe IM (11:05)
[2023-02-14 12:40] VITALS: RESP 16
== END 2023-02-14 12:41 | disposition home or self-care (01) ==
PROVIDERS: Emergency Provider Emergency Medicine; Visit Provider Emergency Medicine
DX: M54.16 Radiculopathy, lumbar region (principal); E11.9 Type 2 diabetes mellitus without complications; M48.00 Spinal stenosis, site unspecified; I10 Essential (primary) hypertension; G89.29 Other chronic pain
CPT/HCPCS: 96372; 99282; J2405

== ENCOUNTER 2023-02-19 11:54 | Emergency (ER) | payer OTHER, SELFPAY ==
[2023-02-19 11:54] VITALS: BP 181/90; PULSE 52; RESP 18; TEMP 36.3; O2SAT 98; BMI 32.1
--- NOTE | 2023-02-19 12:18 | EDS_ITS ---
HPI History of Present Illness Chief Complaint: Lower Extremity Injury [facility] Medical History DDD (degenerative disc disease) Degenerative arthritis of hip Diabetes Gout HTN (hypertension) Obesity (BMI 30.0-34.9) Home Medications allopurinol 100 mg tablet 200 mg PO DINNER gout 12/10/22 [History Last Taken 12/19/22] allopurinol 100 mg tablet 300 mg PO BREAKFAST gout 12/10/22 [History Last Taken 12/20/22] hydrochlorothiazide 12.5 mg capsule 12.5 mg PO DAILY diuretic 12/10/22 [History Last Taken 12/20/22] metformin 1,000 mg tablet 1,000 mg PO BIDCM diabetes 12/10/22 [History Last T [employer] 12/20/22] tamsulosin 0.4 mg capsule 0.4 mg PO DAILY@1730 #0 caps 12/21/22 [Rx Last Taken Unknown] tramadol 50 mg tablet ea PO 12/28/22 [History Last Taken Unknown] cyclobenzaprine 10 mg tablet 10 mg PO TID PRN Muscle Spasm #20 TABLETS 02/14/23 [Rx Last Taken Unknown] hydrocodone-acetaminophen 5-325mg 5mg-325mg 1 tab PO Q4H PRN PRN Pain 2 days #15 TABLETS 02/14/23 [Rx Last Taken Unknown] methylprednisolone 4 mg tablets in a dose pack (Medrol (Ty)) 4 mg PO DAILY #21 tabs 02/14/23 [Rx Last Taken Unknown] oxycodone 10 mg tablet 10 mg PO Q6H PRN pain 4 days #16 tabs 02/19/23 [Rx Last Taken Unknown] Allergy/AdvReac Type Severity Reaction Status Date / Time No Known Allergies Allergy Verified 02/14/23 10:22 Family History Mother Rheumatoid arthritis Father Diabetes Surgical History History of appendectomy History of tonsillectomy and adenoidectomy Social History household members: none and other details: current occupational status: employed 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 Smoking Status: Never smoker alcohol intake: current alcohol intake frequency: holidays/special occasions only substance use type: does not use what type of physical activity do you participate in: none EXAM Physical Exam Const Vital Signs: 02/19/23 11:54 Temperature 97.4 F L Temperature Source Temporal Pulse Rate 52 L Respiratory Rate 18 Blood Pressure 181/90 H Blood Pressure Mean 120 Pulse Ox 98 Oxygen Delivery Method Room Air [facility] [place] Narrative Medical decision making narrative: HISTORY OF PRESENT ILLNESS: 67-year-old male here for acute on chronic lumbar radiculopathy. He states has been diagnosed with herniated disc and lumbar spinal stenosis he occasionally gets flares of severe hip pain. Today he notes left hip pain without any trauma or falls. Notes he is no recent motor vehicle crashes. The patient denies any saddle anesthesia, urinary tension, bowel or bladder incontinence, lower extremity weakness, fever or IV drug use, no recent spinal manipulation or surgery, no recent urinary catheterization. He notes he has seen pain management. He states he seen spinal surgery I recommended an operation however he has [facility] is unable to get operation at this time REVIEW OF SYSTEMS: Pertinent positives: Left hip pain, back pain Pertinent negatives: Saddle anesthesia, numbness, loss of sensation PHYSICAL EXAM: Nursing triage notes reviewed, Vital signs reviewed Constitutional: please see mdm HENT: MMM Eyes: Pupils equal round and reactive to light, Extraocular muscles intact Neck: No stridor, no JVD, full neck ROM Lungs: Clear to auscultation, No wheezing or rales. No increased work of breathing, no conversational dyspnea, no accessory muscle use, no nasal flaring. No respiratory distress noted Heart: Regular rate and rhythm, No murmurs, No rubs and No gallops, 2+ distal pulses (radial, femoral, posterior tibial) in all extremities Abdomen: Soft, there is no tenderness, rigidity, rebound or guarding, no obvious peritoneal signs, no palpable pulsatile abdominal masses, no auscultated abdominal bruit : No CVAT Extremities: No edema Neuro: Intact sensation L1-S1 dermatomal distributions. Intact 5/5 strength in hip flexion (T12-L3). Knee extension (L2-L4). Ankle dorsiflexion (L4-L5). Ankle plantar flexion (S1). Great toe extension (L5). 2+ patellar and Achilles DTRs. Skin: No rash or lesions noted MEDICAL DECISION MAKING: Chief Complaint: Left hip pain, back pain External records reviewed: MRI of the lumbar spine from 12/20/2022 shows degenerative postop changes with disc herniations, canal stenosis L2-L3. Pelvis MRI from November 2022 shows no acute abnormality Factors affecting care:Thrombocytopenia Social determinants of health: Current alcohol use History obtained from others: Consults: None ALL IMAGES HAVE BEEN PERSONALLY REVIEWED AND INTERPRETED BY MYSELF. MDM Narrative: Patient was hemodynamically stable, afebrile, nontoxic-appearing. No focal deficits. Low back pain red flag score. I considered the following differential diagnosis: Lumbar radiculopathy, hip fracture dislocation, hip contusion There is no trauma, report of falls, there is no TTP on internal/external rotation of the hip. Full range of motion hip and no pain. I suspect have lumbar radiculopathy presenting as hip pain. He had no back pain red flags no signs of cauda equina or space-occupying to the spine. I gave the patient symptomatic treatment with IM pain medication. I treated the patient with IM Toradol, Decadron and morphine. He noted improvement he was able to ambulate. Given [place] or narcotics for home-going with close PCP, pain management and spine follow-up. Patient agreed with the plan and agreed to return if symptoms change or worsen. Total critical care time today provided was at least 0 minutes. This excludes separately billable procedures. There was a high probability of clinically significant/life threatening deterioration in the patient's condition which required my urgent intervention. Shared decision making: I will have a discussion with the patient and or visitors regarding risk/benefits of further testing or admission. They will be made aware of of the risk/benefits inherent in this decision they will be given the opportunity to voice understanding. Discharge Plan Triage Chief Complaint: Lower Extremity Injury ED Provider: Catrachito Chris Dx/Rx/DC Orders Clinical Impression: Lumbar radiculopathy Instructions: ED Back Pain (Acute or Chronic) Prescriptions: New oxycodone 10 mg tablet 10 mg PO Q6H PRN (Reason: pain) 4 Days Qty: 16 0RF No Action tramadol 50 mg tablet PO Label Comments: take 1 tablet by mouth three times a day if needed for 7 days hydrochlorothiazide 12.5 mg Capsule 12.5 mg PO DAILY Hold Instructions: Resume on 12/21/22. Rx Instructions: takes with linsiniprinl 10 mg po metformin 1,000 mg Tablet 1,000 mg PO BIDCM Hold Instructions: Resume on 12/21/22. Rx Instructions: with meals allopurinol 100 mg Tablet 300 mg PO BREAKFAST Rx Instructions: takes 3 tabs in the morning allopurinol 100 mg Tablet 200 mg PO DINNER Rx Instructions: takes 2 tabs in the evening. tamsulosin 0.4 mg Capsule 0.4 mg PO DAILY@1730 Qty: 0 0RF hydrocodone-acetaminophen [hydrocodone-acetaminophen] 5-325 mg tablet 1 tab PO Q4H PRN PRN (Reason: Pain) 2 Days Qty: 15 0RF cyclobenzaprine [cyclobenzaprine] 10 mg tablet 10 mg PO TID PRN (Reason: Muscle Spasm) Qty: 20 0RF methylprednisolone [Medrol (Ty)] 4 mg tablets,dose pack 4 mg PO DAILY Qty: 21 0RF [facility] [facility] [Primary Care Provider] - Activity Restrictions/Additional Instructions: Thank you for trusting us with your care today! Please take Tylenol (2 pills, 650 mg), ibuprofen (2 pills, 400 mg) every 6 hours as needed for pain and fever control. If the above regimen does not control your pain. Please take oxycodone has been written for you Please return to the emergency department if your symptoms change or worsen. Specifically if you develop bowel or bladder incontinence, urinary retention, loss of sensation or movement in your lower extremities. He is a red flag symptoms for spinal emergencies. Please return to the emergency part immed iately if these develop Please follow-up with your spinal surgeon the next billable appointment for surgical evaluation and possible surgical intervention for likely herniated disc causing lumbar radiculopathy Please follow with your primary care physician for further outpatient evaluation and management. Disposition Disposition: Home, Self Care Discharge Date/Time: 02/19/23 14:21
[2023-02-19] MEDS: Ketorolac 30 MG/ML Syringe IM (13:15)
[2023-02-19] MEDS: dexAMETHasone 10 MG/ML Vial 6 MG IM (13:15)
[2023-02-19] MEDS: Morphine 4 MG/ML Syringe IM (13:15)
== END 2023-02-19 14:21 | disposition home or self-care (01) ==
PROVIDERS: Emergency Provider Emergency Medicine; Visit Provider Emergency Medicine
DX: M51.16 Intervertebral disc disorders with radiculopathy, lumbar region (principal); D69.6 Thrombocytopenia, unspecified; E11.9 Type 2 diabetes mellitus without complications; M25.552 Pain in left hip; I10 Essential (primary) hypertension; M48.061 Spinal stenosis, lumbar region without neurogenic claudication
CPT/HCPCS: 96372; 99284

== ENCOUNTER 2023-02-26 12:55 | Emergency (ER) | payer OTHER, SELFPAY ==
[2023-02-26 12:56] VITALS: BP 186/91; PULSE 62; RESP 18; TEMP 35.7; O2SAT 100
[2023-02-26 13:13] VITALS: BMI 31.8
--- NOTE | 2023-02-26 13:33 | EDS_ITS ---
HPI History of Present Illness Chief Complaint: Back Detail of Chief Complaint: Back pain Informant: patient Narrative Narrative: Patient presents with back pain. Patient currently seeing the [facility] and pain management. He was admitted a few months ago for the back pain and was seen by pain management here at [facility] as well as Dr. Guzmán. He had an MRI that showed herniated disc at L2-3. Patient was offered conservative measures and sp inal injections which she had an epidural and had good pain relief with that. Patient's had multiple repeat visits to the ER for ongoing pain. 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 This morning he was having an exacerbation of his pain and took Tylenol Extra Strength as well as oxycodone and just not getting the kind of pain relief that he would want. He denies weakness to extremities. He denies change in bowel or bladder function. Pain mostly in his left buttock and some radiation into the groin area. This is typical of his pain. He had no new falls or injuries. [facility] Medical History DDD (degenerative disc disease) Degenerative arthritis of hip Diabetes Gout HTN (hypertension) Obesity (BMI 30.0-34.9) Home Medications allopurinol 100 mg tablet 200 mg PO DINNER gout 12/10/22 [History Last Taken 12/19/22] allopurinol 100 mg tablet 300 mg PO BREAKFAST gout 12/10/22 [History Last Taken 12/20/22] hydrochlorothiazide 12.5 mg capsule 12.5 mg PO DAILY diuretic 12/10/22 [History Last Taken 12/20/22] metformin 1,000 mg tablet 1,000 mg PO BIDCM diabetes 12/10/22 [History Last Taken 12/20/22] tamsulosin 0.4 mg capsule 0.4 mg PO DAILY@1730 #0 caps 12/21/22 [Rx Last Taken Unknown] tramadol 50 mg tablet ea PO 12/28/22 [History Last Taken Unknown] methylprednisolone 4 mg tablets in a dose pack (Medrol (Ty)) 4 mg PO DAILY #21 tabs 02/14/23 [Rx Last Taken Unknown] oxycodone 10 mg tablet 10 mg PO Q6H PRN pain 4 days #16 tabs 02/19/23 [Rx Last Taken Unknown] acetaminophen 500 mg tablet 1,000 mg PO Q6H PRN Pain 02/26/23 [History Last Taken Unknown] gabapentin 300 mg capsule 300 mg PO TID 02/26/23 [History Last Taken Unknown] Allergy/AdvReac Type Severity Reaction Status Date / Time No Known Allergies Allergy Verified 02/26/23 12:56 Family History Mother Rheumatoid arthritis Father Diabetes Surgical History History of appendectomy History of tonsillectomy and adenoidectomy Social History household members: none and other details: current occupational status: employed 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 Smoking Status: Never smoker alcohol intake: current alcohol intake frequency: holidays/special occasions only substance use type: does not use what type of physical activity do you participate in: none ROS ROS ED Review of Systems ROS Unobtainable: other Constitutional Constitutional ED: Reports lethargy; Denies chills, fever(s), sweats or weight loss Eyes Eyes: Denies blurry vision, change in vision or diplopia ENT ENT ED: Denies rhinorrhea or sore throat Cardiovascular Cardiovascular: Denies chest pain, orthopnea or racing heartbeat Respiratory/Chest Respiratory/Chest: Denies cough, dyspnea, dyspnea on exertion, orthopnea or sputum Gastrointestinal Gastrointestinal: Denies abdominal pain, diarrhea, nausea or vomiting Genitourinary Genitourinary ED: Denies dysuria, hematuria or urinary frequency Musculoskeletal Musculoskeletal: Reports back pain; Denies arthralgias, myalgias or neck pain Integumentary Denies abscess, Abrasions or rash Neurologic Neurologic: Denies headache(s) or weakness Psychiatric Psychiatric: Denies anxiety, depression or suicidal thoughts Endocrine Endocrinology: Denies polydipsia, polyphagia or polyuria Hematologic/Lymphatic Hematologic/Lymphatic: Denies easy bleeding, easy bruising or lymphadenopathy Allergic/Immunologic Allergic/Immunologic ED: Denies mouth swelling, tongue swelling or urticaria EXAM Physical Exam Const Vital Signs: 02/26/23 12:56 Temperature 96.3 F L Temperature Source Temporal Pulse Rate 62 Respiratory Rate 18 Blood Pressure 186/91 H Blood Pressure Mean 122 Pulse Ox 100 Oxygen Delivery Method Room Air Positive well nourished and well developed General Appearance ED: well developed and NAD HEENT Reports TM's clear and moist mucous membranes normocephalic and atraumatic; Negative for trauma or tenderness Tympanic Membrane ED: Yes TM's clear Eyes PERRL and EOMs intact bilaterally General Eye ED: Negative for pale conjunctiva or scleral icterus Neck no lymphadenopathy, supple and no JVD General: Negative for tenderness Chest Wall inspection of chest normal and palpation of chest normal Chest: Negative for tenderness Resp normal respiratory effort and clear to auscultation bilaterally Effort and Inspection: Negative for respiratory distress or pain with movement Auscultation: Negative for rhonchi, wheezes or diminished lung sounds Cardio regular rate, regular rhythm, S1 normal heart sound, S2 normal heart sound and no murmurs Peripheral Pulses: pulses 2+ throughout GI normal to inspection, nondistended, normoactive bowel sounds, soft to palpation, non-tender, non-distended and no masses Back/Spine no CVA tenderness and no thoracic nor lumbar tenderness Back/Spine Narrative: Patient with no real significant tenderness over thoracic or lumbar spine. No significant tenderness over the lumbar paraspinal musculature. Negative straight leg raises. Deep tendon reflexes plus 2 out of 4 bilaterally at the patella and Achilles. Patient has normal L5 extension bilaterally. Patient has normal sensation to light touch. Extremity normal to inspection General Extremety ED: Negative for edema General Extremity: Negative for edema Neuro oriented x3, CN's II-XII intact bilaterally, no sensory deficits noted and gait normal Sensorium / Orientation: awake, alert, oriented to person, oriented to place and oriented to time Motor Exam: strength 5/5 throughout and strength abnormal Psych mental status grossly normal Skin no rashes or lesions noted and no wounds MDM MDM MDM Narrative Medical decision making narrative: Patient with acute exacerbation of his chronic back pain. He is scheduled [facility] He has had no new injury or trauma. Pain is typical of his chronic back pain. We will give him 1 dose of Dilaudid 1 mg IM as well as Zofran 4 mg IM. 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 There are no red flag symptoms of cauda equina. Advised to return if worsening pain, weakness in extremities, change in bowel or bladder function, or condition should worsen anyway. Discharge Plan Triage Chief Complaint: Back Other Complaint: Lower Extremity Injury ED Provider: Sid Taylor Dx/Rx/DC Orders Clinical Impression: Acute exacerbation of chronic low back pain Instructions: ED Back Pain (Acute or Chronic) Prescriptions: No Action tramadol 50 mg tablet PO Label Comments: take 1 tablet by mouth three times a day if needed for 7 days hydrochlorothiazide 12.5 mg Capsule 12.5 mg PO DAILY Hold Instructions: Resume on 12/21/22. Rx Instructions: takes with linsiniprinl 10 mg po metformin 1,000 mg Tablet 1,000 mg PO BIDCM Hold Instructions: Resume on 12/21/22. Rx Instructions: with meals allopurinol 100 mg Tablet 300 mg PO BREAKFAST Rx Instructions: takes 3 tabs in the morning allopurinol 100 mg Tablet 200 mg PO DINNER Rx Instructions: takes 2 tabs in the evening. tamsulosin 0.4 mg Capsule 0.4 mg PO DAILY@1730 Qty: 0 0RF methylprednisolone [Medrol (Ty)] 4 mg tablets,dose pack 4 mg PO DAILY Qty: 21 0RF oxycodone 10 mg tablet 10 mg PO Q6H PRN (Reason: pain) 4 Days Qty: 16 0RF acetaminophen 500 mg Tablet 1,000 mg PO Q6H PRN (Reason: Pain) gabapentin 300 mg Capsule 300 mg PO TID [facility] [Primary Care Provider] - Activity Restrictions/Additional Instructions: Follow-up with your chest painting and sealing supervisor for further pain management of your chronic back pain. Disposition Disposition: Home, Self Care
[2023-02-26] MEDS: HYDROmorphone 1 MG/ML Syringe IM (13:50)
[2023-02-26] MEDS: Ondansetron 4 MG/2 ML Vial IM (13:51)
== END 2023-02-26 14:07 | disposition home or self-care (01) ==
PROVIDERS: Emergency Provider Emergency Medicine; Visit Provider Emergency Medicine
DX: G89.29 Other chronic pain (principal); E11.9 Type 2 diabetes mellitus without complications; M51.26 Other intervertebral disc displacement, lumbar region; I10 Essential (primary) hypertension; Z79.899 Other long term (current) drug therapy; E66.9 Obesity, unspecified
CPT/HCPCS: 96372; 99281; 99282; J2405

== ENCOUNTER 2023-03-05 14:19 | Emergency (ER) | payer OTHER, SELFPAY ==
[2023-03-05 14:19] VITALS: BP 190/109; PULSE 76; RESP 16; TEMP 36.6; O2SAT 99; BMI 31.3
--- NOTE | 2023-03-05 14:58 | EX.ED.DYSGE1 ---
HPI <KENNETH Ng - Last Filed: 03/05/23 19:49> History of Present Illness Chief Complaint: Lower Extremity Injury Narrative Narrative: Patient presenting today due to chronic lower back pain that is most prominent in his left buttocks that radiates into his left groin and left anterior thigh that he has had now for several months. He reports that this pain started in August but was tolerable until December and when it worsened, he has had MRIs that show herniated disc at L2 and L3. [facility] on gabap[facility], Tylenol, Advil, and he is scheduled to get an epidural March 30. Has had to come to the emergency department several times in the past 2 months due to exacerbations of his pain. He denies any fever, chills, saddle paresthesia, bowel/bladder incontinence. He reports his current pain feels like the pain he normally experiences. No new injury to his back. [facility] <KENNETH Ng - Last Filed: 03/05/23 19:49> [facility] Medical History DDD (degenerative disc disease) Degenerative arthritis of hip Diabetes Gout HTN (hypertension) Obesity (BMI 30.0-34.9) Home Medications allopurinol 100 mg tablet 200 mg PO DINNER gout 12/10/22 [History Last Taken 12/19/22] allopurinol 100 mg tablet 300 mg PO BREAKFAST gout 12/10/22 [History Last Taken 12/20/22] hydrochlorothiazide 12.5 mg capsule 12.5 mg PO DAILY diuretic 12/10/22 [History Last Taken 12/20/22] metformin 1,000 mg tablet 1,000 mg PO BIDCM diabetes 12/10/22 [History Last Taken 12/20/22] tamsulosin 0.4 mg capsule 0.4 mg PO DAILY@1730 #0 caps 12/21/22 [Rx Last Taken Unknown] tramadol 50 mg tablet ea PO 12/28/22 [History Last Taken Unknown] methylprednisolone 4 mg tablets in a dose pack (Medrol (Ty)) 4 mg PO DAILY #21 tabs 02/14/23 [Rx Last Taken Unknown] oxycodone 10 mg tablet 10 mg PO Q6H PRN pain 4 days #16 tabs 02/19/23 [Rx Last Taken Unknown] acetaminophen 500 mg tablet 1,000 mg PO Q6H PRN Pain 02/26/23 [History Last Taken Unknown] gabapentin 300 mg capsule 300 mg PO TID 02/26/23 [History Last Taken Unknown] cyclobenzaprine 10 mg tablet 10 mg PO TID PRN Muscle Spasm #15 TABLETS 03/05/23 [Rx Last Taken Unknown] lidocaine 5 % patch and menthol 6 % gel topical kit See Rx Instructions topical .COMPLEX #1 ea 03/05/23 [Rx Last Taken Unknown] prednisone 10 mg tablet 40 mg PO DAILY 5 days #20 tabs 03/05/23 [Rx Last Taken Unknown] Allergy/AdvReac Type Severity Reaction Status Date / Time No Known Allergies Allergy Verified 03/05/23 14:21 Family History Mother Rheumatoid arthritis Father Diabetes Surgical History History of appendectomy History of tonsillectomy and adenoidectomy Social History household members: none and other details: current occupational status: employed 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 Smoking Status: Never smoker alcohol intake: current alcohol intake frequency: holidays/special occasions only substance use type: does not use what type of physical activity do you participate in: none ROS <KENNETH Ng - Last Filed: 03/05/23 19:49> ROS ED Constitutional Constitutional ED: Denies chills or fever(s) Cardiovascular Cardiovascular: Denies chest pain or palpitations Respiratory/Chest Respiratory/Chest: Denies cough or dyspnea Gastrointestinal Gastrointestinal: Denies abdominal pain, nausea or vomiting Genitourinary Genitourinary ED: Denies dysuria, hematuria or urinary urgency Musculoskeletal Musculoskeletal: Reports back pain Integumentary Denies abscess or Abrasions Neurologic Neurologic: Denies paresthesias or weakness EXAM <KENNETH Ng - Last Filed: 03/05/23 19:49> Physical Exam Const Vital Signs: 03/05/23 14:19 Temperature 97.8 F Temperature Source Temporal Pulse Rate 76 Respiratory Rate 16 Blood Pressure 190/109 H Blood Pressure Mean 136 Pulse Ox 99 Oxygen Delivery Method Room Air Positive well nourished, well developed and no apparent distress General Appearance ED: well developed HEENT Reports normocephalic and head/scalp atraumatic Mouth ED: Yes moist mucous membranes normal Eyes PERRL and EOMs intact bilaterally Neck full ROM and supple Chest Wall inspection of chest normal Resp normal respiratory effort and clear to auscultation bilaterally Cardio regular rate and regular rhythm GI soft to palpation, non-tender, non-distended and no masses Back/Spine normal ROM and normal to inspection Back/Spine Narrative: No significant thoracic or lumbar spinal tenderness. Extremity normal to inspection and full ROM Neuro oriented x3, CN's II-XII intact bilaterally, moves all extremities, no focal motor deficits and no sensory deficits noted Sensorium / Orientation: awake and alert Motor Exam: strength 5/5 throughout Psych mental status grossly normal and thought process normal Skin no rashes or lesions noted and no wounds <Dr. Jose Acuña DO - Last Filed: 03/05/23 22:43> Physical Exam Const Vital Signs: 03/05/23 14:19 Temperature 97.8 F Temperature Source Temporal Pulse Rate 76 Respiratory Rate 16 Blood Pressure 190/109 H Blood Pressure Mean 136 Pulse Ox 99 Oxygen Delivery Method Room Air MDM <KENNETH Ng - Last Filed: 03/05/23 19:49> [facility] Narrative Medical decision making narrative: Patient presenting with lower L back pain that is most pronounced in the left buttocks and does radiate some to the groin into the anterior thigh that he has had chronically. He does have herniated disks at L2 and L3 he reports that he is [facility] and [facility] have him on gabapentin, Tylenol, and Advil. He did see Dr. Perez while he was admitted to the hospital here and did receive an epidural which she reports did help his pain significantly, he cannot get another until mid March. He was told that this may need surgery but conservative measures should be tried first. He sees his pain management provider again on Monday. He has been to the ED now several times, this is his third Monday coming here in a row and reports that he usually gets Dilaudid for his pain. He has been sent home on narcotics several times. Today, he was given Zofran, morphine, and Toradol here for his pain. He does not have any symptoms to suggest cauda equina syndrome. On reexamination he reports improvement in his pain and is able to ambulate without difficulty. Because patient is in pain management, I do not feel it is appropriate for us to discharge him on narcotics. He has been given a prescription for Flexeril, prednisone, and lidocaine patches. He will be discharged home in stable condition and is comfortable with plan. <Dr. Jose Acuña, DO - Last Filed: 03/05/23 22:43> [facility] Narrative Medical decision making narrative: Patient presenting with lower L back pain that is most pronounced in the left buttocks and does radiate some to the groin into the anterior thigh that he has had chronically. He does have herniated disks at L2 and L3 he reports that he is [facility] and [facility] have him on gabapentin, Tylenol, and Advil. He did see Dr. Perez while he was admitted to the hospital here and did receive an epidural which she reports did help his pain significantly, he cannot get another until mid March. He was told that this may need surgery but conservative measures should be tried first. He sees his pain management provider again on Monday. He has been to the ED now several times, this is his third Monday coming here in a row and reports that he usually gets Dilaudid for his pain. He has been sent home on narcotics several times. Today, he was given Zofran, morphine, and Toradol here for his pain. He does not have any symptoms to suggest cauda equina syndrome. On reexamination he reports improvement in his pain and is able to ambulate without difficulty. Because patient is in pain management, I do not feel it is appropriate for us to discharge him on narcotics. He has been given a prescription for Flexeril, prednisone, and lidocaine patches. He will be discharged home in stable condition and is comfortable with plan. This patient was seen with a PA/COUNCILMAN Individually assessed they patient including history and physical. I have reviewed everything on the chart that is available and agree with the documentation provided by the PA/COUNCILMAN including discussion about the assessment, treatment plan, discussion, and return precautions. Agree with above. Patient previously admitted for back pain but after morphine, Zofran, Toradol here he is doing much better. He is able to get up and ambulate without much difficulty. No evidence of cauda equina syndrome. Discussed with him that this is a chronic issue and needs to follow-up with his pain management doctor. I do not believe it is appropriate to give him more narcotics. I will give him a prescription for muscle relaxers, prednisone, lidocaine patches. Return precautions were discussed Discharge Plan Triage Chief Complaint: Lower Extremity Injury ED Midlevel Provider: Linnea Pugh ED Provider: Jose Acuña Dx/Rx/DC Orders Clinical Impression: Chronic lower back pain Instructions: ED Back and Neck Pain, General Prescriptions: New prednisone 10 mg tablet 40 mg PO DAILY 5 Days Qty: 20 0RF cyclobenzaprine 10 mg tablet 10 mg PO TID PRN (Reason: Muscle Spasm) Qty: 15 0RF lidocaine-menthol 5-6 % kit See Rx Instructions .ROUTE .COMPLEX Qty: 1 0RF Rx Instructions: apply LIDIOCAINE PATCH once a day/may leave on for up to 12 hrs; apply MENTHOL GEL 1 - 4 times/day as needed for pain. No Action tramadol 50 mg tablet PO Label Comments: take 1 tablet by mouth three times a day if needed for 7 days hydrochlorothiazide 12.5 mg Capsule 12.5 mg PO DAILY Hold Instructions: Resume on 12/21/22. Rx Instructions: takes with linsiniprinl 10 mg po metformin 1,000 mg Tablet 1,000 mg PO BIDCM Hold Instructions: Resume on 12/21/22. Rx Instructions: with meals allopurinol 100 mg Tablet 300 mg PO BREAKFAST Rx Instructions: takes 3 tabs in the morning allopurinol 100 mg Tablet 200 mg PO DINNER Rx Instructions: takes 2 tabs in the evening. tamsulosin 0.4 mg Capsule 0.4 mg PO DAILY@1730 Qty: 0 0RF methylprednisolone [Medrol (Ty)] 4 mg tablets,dose pack 4 mg PO DAILY Qty: 21 0RF oxycodone 10 mg tablet 10 mg PO Q6H PRN (Reason: pain) 4 Days Qty: 16 0RF acetaminophen 500 mg Tablet 1,000 mg PO Q6H PRN (Reason: Pain) gabapentin 300 mg Capsule 300 mg PO TID [facility] Provider[facility] [Primary Care Provider] - Activity Restrictions/Additional Instructions: Please follow-up with your pain management doctor. Disposition Disposition: Home, Self Care Discharge Date/Time: 03/05/23 17:30
[2023-03-05] MEDS: Ondansetron ODT 4 MG Tablet PO (15:40)
[2023-03-05] MEDS: Ketorolac 15 MG/ML Vial IM (15:40)
[2023-03-05] MEDS: Morphine 4 MG/ML Syringe IM (15:41)
== END 2023-03-05 17:30 | disposition home or self-care (01) ==
PROVIDERS: Emergency Provider Student in an Organized Health Care Education/Training Program; Visit Provider Student in an Organized Health Care Education/Training Program
DX: M51.26 Other intervertebral disc displacement, lumbar region (principal); E11.9 Type 2 diabetes mellitus without complications; I10 Essential (primary) hypertension; G89.29 Other chronic pain
CPT/HCPCS: 96372; 99283